=== PATIENT | female | born 1985 | race African-American/Black ===

== ENCOUNTER 2020-06-08 09:40 | Emergency (ER) | payer OTHER ==
[~2020-06-08] VITALS: Ht 162.6 cm; Wt 72.7 kg
[2020-06-08] MEDS ORDERED: FISH1000 PO (10:08)
[2020-06-08] MEDS ORDERED: PREN29TA4 PO (10:08)
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
[2020-06-08 12:35] VITALS: BP 135/75
== END 2020-06-08 12:27 | disposition home or self-care (01) ==
LOC: M ED 09:40 → EDBD 09:40 → M ED 12:27
DX: S16.1XXA Strain of muscle, fascia and tendon at neck level, initial encounter (principal); S39.012A Strain of muscle, fascia and tendon of lower back, initial encounter; V43.52XA Car driver injured in collision with other type car in traffic accident, initial encounter; Y92.9 Unspecified place or not applicable; Y93.9 Activity, unspecified; Y99.9 Unspecified external cause status; Z79.899 Other long term (current) drug therapy

== ENCOUNTER 2020-09-20 11:51 | Emergency (ER) | payer OTHER ==
[~2020-09-20] VITALS: Ht 162.6 cm; Wt 88.1 kg
[~2020-09-20 11:51] MED LIST: FISH1000 PO; PREN29TA4 PO
[2020-09-20] MEDS ORDERED: NS 1,000 ML IV ONE (12:30)
[2020-09-20 13:03] LABS: BASO # 0.1 10^3/uL (0.0-0.2); BASO % 1.2 % (0.0-1.0); EOS # 0.1 10^3/uL (0.0-0.5); EOS % 1.2 % (0.0-3.0); HEMATOCRIT 38.5 % (36.0-47.0); HEMOGLOBIN 12.3 g/dl (12.0-15.5); LYMPH # 2.2 10^3/uL (1.5-5.0); LYMPH % 41.8 % (24.0-44.0); MEAN CORPUSCULAR HEMOGLOBIN 28.9 pg (27.0-33.0); MEAN CORPUSCULAR HGB CONC 31.9 g/dl (32.0-36.5); MEAN CORPUSCULAR VOLUME 90.6 fl (80.0-96.0); MONO # 0.5 10^3/uL (0.0-0.8); MONO % 9.3 % (0.0-5.0); NEUTROPHILS # 2.4 10^3/uL (1.5-8.5); NEUTROPHILS % 46.3 % (36.0-66.0); PLATELET COUNT, AUTOMATED 176 10^3/uL (150-450); RED BLOOD COUNT 4.25 10^6/uL (4.00-5.40); WHITE BLOOD COUNT 5.2 10^3/uL (4.0-10.0)
[2020-09-20] MEDS ORDERED: KETOROLAC 30 MG/ML 1ML VIAL IV ONE (13:45)
[2020-09-20 13:46] LABS: ALBUMIN 3.7 GM/DL (3.2-5.2); ALT/SGPT 21 U/L (12-78); BILIRUBIN,DIRECT < 0.1 MG/DL (0.0-0.2); BILIRUBIN,TOTAL 0.2 MG/DL (0.2-1.0); TOTAL PROTEIN 7.5 GM/DL (6.4-8.2)
--- NOTE | 2020-09-20 14:33 | REP ---
INDICATION: pelvic/adenexal pain. COMPARISON: None. TECHNIQUE: Transabdominal scanning is performed. FINDINGS: Uterine dimensions are normal at 6.9 x 3.3 x 5.0 cm. Endometrial echo is 0.6 cm thick and centrally placed. No free fluid is seen in the cul-de-sac. Visualized bladder tavera are smooth. The right ovary has dimensions of 5.1 x 2.9 x 2.2 cm. It's Doppler flow is normal with a resistive index of 0.69. There is a involuting cyst in the right ovary measuring 2.6 x 2.0 x 1.9 cm. The left ovary dimensions are normal as well at 4.2 x 1.9 x 2.6 cm. It's Doppler flow was normal with resistive index of 0.67. No ovarian abnormality is noted on the left. No free fluid is seen. IMPRESSION: Involuting cyst right ovary. No significant abnormality.. <Electronically signed by Jose Raul Rubio > 09/20/20 [id number]
[2020-09-20 15:04] VITALS: BP 147/81
== END 2020-09-20 15:06 | disposition home or self-care (01) ==
LOC: M ED 11:51
DX: N83.201 Unspecified ovarian cyst, right side (principal); Z79.899 Other long term (current) drug therapy
CPT/HCPCS: 76856; 80047; 80076; 81001; 84702; 85025; 96361; 96374; 99284; J1885

== ENCOUNTER 2020-10-21 10:39 | Emergency (ER) | payer OTHER ==
[~2020-10-21] VITALS: Ht 162.6 cm; Wt 86.7 kg
[2020-10-21] MEDS ORDERED: muscle relaxer (10:59)
[2020-10-21 11:35] LABS: BASO # 0.1 10^3/uL (0.0-0.2); BASO % 0.8 % (0.0-1.0); EOS % 0.5 % (0.0-3.0); HEMATOCRIT 38.1 % (36.0-47.0); HEMOGLOBIN 12.3 g/dl (12.0-15.5); LYMPH # 2.1 10^3/uL (1.5-5.0); LYMPH % 27.1 % (24.0-44.0); MEAN CORPUSCULAR HEMOGLOBIN 28.4 pg (27.0-33.0); MEAN CORPUSCULAR HGB CONC 32.3 g/dl (32.0-36.5); MONO # 0.6 10^3/uL (0.0-0.8); MONO % 7.6 % (0.0-5.0); NEUTROPHILS # 4.9 10^3/uL (1.5-8.5); NEUTROPHILS % 63.7 % (36.0-66.0); PLATELET COUNT, AUTOMATED 196 10^3/uL (150-450); RED BLOOD COUNT 4.33 10^6/uL (4.00-5.40); WHITE BLOOD COUNT 7.7 10^3/uL (4.0-10.0)
[2020-10-21] MEDS ORDERED: NS 1,000 ML IV ONE (12:00)
[2020-10-21] MEDS ORDERED: ACETAMINOPHEN 500 MG TAB PO ONE (12:00)
[2020-10-21 12:28] LABS: ALBUMIN 3.8 GM/DL (3.2-5.2); ALT/SGPT 21 U/L (12-78); BILIRUBIN,DIRECT 0.1 MG/DL (0.0-0.2); BILIRUBIN,TOTAL 0.3 MG/DL (0.2-1.0); BLOOD UREA NITROGEN 10 MG/DL (7-18); CALCIUM LEVEL 9.6 MG/DL (8.5-10.1); CARBON DIOXIDE LEVEL 28 MEQ/L (21-32); CHLORIDE LEVEL 105 MEQ/L (98-107); CREATININE FOR GFR 0.99 MG/DL (0.55-1.30); GLOMERULAR FILTRATION RATE > 60.0 (>60); GLUCOSE, FASTING 111 MG/DL (70-100); HCG, SERUM QUANTITATIVE 681 MIU/ML; LIPASE 353 U/L (73-393); POTASSIUM SERUM 3.7 MEQ/L (3.5-5.1); SODIUM LEVEL 138 MEQ/L (136-145); TOTAL PROTEIN 7.7 GM/DL (6.4-8.2)
--- NOTE | 2020-10-21 13:44 | REP ---
INDICATION: pelvic pain, positive HCG. COMPARISON: None. TECHNIQUE: Real-time sonographic evaluation of pelvis performed utilizing transabdominal and endovaginal technique. FINDINGS: Uterus measures 8.2 x 4.0 x 4.6 cm. Endometrial thickness is 17 mm. Small sac-like structure in the endometrial canal may represent an early intrauterine gestation. The mean sac diameter is 2 mm which would correspond to an estimated gestational age of 4 weeks 5 days. No internal yolk sac or pole is visualized. Right ovary measures 5.1 x 1.7 x 3.4 cm and left ovary measures 5.0 x 2.2 x 3.3 cm. There is no evidence of ovarian torsion bilaterally with duplex Doppler evaluation. Complex hyperechoic structure in the left ovary probably represents a complex corpus luteum 2.4 x 1.8 x 2.1 cm. There is trace free fluid in the cul-de-sac. IMPRESSION: Small sac-like structure in the endometrial canal 2 mm in diameter, which would correspond to an estimated gestational age of 4 weeks 5 days. No internal yolk sac or pole seen. No adnexal mass. Trace free fluid. The findings may represent very early intrauterine gestation. Ectopic cannot totally be excluded. Recommend correlation with serial quantitative beta HCG values and follow-up ultrasound may be obtained in about 2 weeks to document viability. <Electronically signed by Jay Watkins > 10/21/20 [id number]
[2020-10-21 14:23] VITALS: BP 109/56
[2020-10-22] MEDS ORDERED: HYDR-3713 PO ×2 (15:29→15:35)
== END 2020-10-21 14:30 | disposition home or self-care (01) ==
LOC: M ED 10:39
DX: O20.0 Threatened abortion (principal); O26.899 Other specified pregnancy related conditions, unspecified trimester; Z32.01 Encounter for pregnancy test, result positive; Z3A.01 Less than 8 weeks gestation of pregnancy; Z79.899 Other long term (current) drug therapy

== ENCOUNTER 2020-10-22 11:59 | Emergency (ER) | payer OTHER ==
[~2020-10-22] VITALS: Ht 162.6 cm; Wt 89.0 kg
[~2020-10-22 11:59] MED LIST changes: +muscle relaxer
--- OUTSIDE RECORDS SUMMARY | 2020-10-22 12:07 | CCD ---
Author Author [facility] Organization [facility] Address Unknown Phone Unavailable Care Team Providers Care Senior Java [email or web address] Developer Name Role Phone MCELHERAN, LINSEY PA Unavailable Unavailable MCELHERAN, LINSEY PA Unavailable Unavailable MCELHERAN, LINSEY PA Unavailable Unavailable MCELHERAN, LINSEY PA Unavailable Unavailable MCELHERAN, LINSEY PA Unavailable Unavailable MCELHERAN, LINSEY PA Unavailable Unavailable MCELHERAN, LINSEY PA Unavailable Unavailable MCELHERAN, LINSEY PA Unavailable Unavailable MCELHERAN, LINSEY PA Unavailable Unavailable MCELHERAN, LINSEY PA Unavailable Unavailable MCELHERAN, LINSEY PA Unavailable Unavailable MCELHERAN, LINSEY PA Unavailable Unavailable MCELHERAN, LINSEY PA Unavailable Unavailable MCELHERAN, LINSEY PA Unavailable Unavailable MCELHERAN, LINSEY PA Unavailable Unavailable MCELHERAN, LINSEY PA Unavailable Unavailable MCELHERAN, LINSEY PA Unavailable Unavailable MCELHERAN, LINSEY PA Unavailable Unavailable MCELHERAN, LINSEY PA Unavailable Unavailable MCELHERAN, LINSEY PA Unavailable Unavailable MCELHERAN, LINSEY PA Unavailable Unavailable MCELHERAN, LINSEY PA Unavailable Unavailable MCELHERAN, LINSEY PA Unavailable Unavailable MCELHERAN, LINSEY PA Unavailable Unavailable MCELHERAN, LINSEY PA Unavailable Unavailable MCELHERAN, LINSEY PA Unavailable Unavailable MCELHERAN, LINSEY PA Unavailable Unavailable MCELHERAN, LINSEY PA Unavailable Unavailable Re-disclosure Warning The records that you are about to access may contain information from federally-assisted alcohol or drug abuse programs. If such information is present, then the following federally mandated warning applies: This information has been disclosed to you from records protected by federal confidentiality rules (42 CFR part 2). The federal rules prohibit you from making any further disclosure of this information unless further disclosure is expressly permitted by the written consent of the person to whom it pertains or as otherwise permitted by 42 CFR part 2. A general authorization for the release of medical or other information is NOT sufficient for this purpose. The Federal rules restrict any use of the information to criminally investigate or prosecute any alcohol or drug abuse patient.The records that you are about to access may contain highly sensitive health information, the redisclosure of which is protected by Article 27-F of the [facility] Public Health law. If you continue you may have access to information: Regarding HIV / AIDS; Provided by facilities licensed or operated by the [facility] Office of Mental Health; or Provided by the [facility] Office for People With Developmental Disabilities. If such information is present, then the following [facility] mandated warning applies: This information has been disclosed to you from confidential records which are protected by state law. State law prohibits you from making any further disclosure of this information without the specific written consent of the person to whom it pertains, or as otherwise permitted by law. Any unauthorized further disclosure in violation of state law may result in a fine or detention sentence or both. A general authorization for the release of medical or other information is NOT sufficient authorization for further disc losure. Encounters Encounter Providers Location Date Indications Data Source(s ) Office Visit Attender: LINSEY DELGADO Physical Therapy 10/20/2020 01:30:00 PM EST [facility] ([facility]) Insurance Providers Payer name Policy type / Coverage type Policy ID Covered libertarian ID Covered libertarian's relationship to oseguera Policy Oseguera Plan Information EAST ACTIVE DUTY [id number] SP [id number] UYEN INSURANCE O [id number] S A0 [id number] HUMANA EAST REG O [id number] S [id number] O UNAVAILABLE UNAVAILA BLE [facility] ACTIVE DUTY [id number] SP [id number] Vital Signs ID Date Data Source UNK Name Value Range Interpretation Code Description Data Source(s) Body mass index (BMI) [Ratio] 31.3 kg/m2 31.3 k g/m2 [facility] ([facility]) Body weight 191.00 [lb_av] 191.00 [lb_av] MEDEN T ([facility] ) Body height 65.5 [in_i] 65.5 [in_i] [facility] ([facility] ) 5'5.50" Body temperature 97.1 [degF] 97.1 [degF] [facility] ([facility] )
--- OUTSIDE RECORDS SUMMARY | 2020-10-22 12:07 | CCD | Continuity of Care Document ---
Author Author Petty VEGA Organization Unknown Address [address] [place] [address], [facility] [address] [place] [address] Phone [phone] Care Team Providers Care Hr Advisor Name Role Phone Ricki Lopes Unavailable Problems Description No Information Available Social History Type Date Description Comments Sex Unknown ETOH Use Denies alcohol use Tobacco Use Start: Unknown Denies Smoking Allergies, Adverse Reactions, Alerts Description No Information Available Medications Active Medications SIG Qnty Indications Ordering Provide r Date Ibuprofen 200mg Capsules 1x p d Unknown Immunizations Description No Information Available Vital Signs Date Vital Result Comment 10/20/2020 3:14pm Body Temperature 97.1 F Height 65.5 inches 5'5.50" Weight 191.00 lb BMI (Body Mass Index) 31.3 kg/m2 Results Description No Information Available Procedures Description No Information Available Medical Devices Description No Information Available Encounters Type Date Location Provider Dx Diagnosis Office Visit 10/20/2020 2:30p Ald[place] Mookie Moffett M51.36 Other intervertebral disc degeneration, lumbar region Assessments Date Code Description Provider 10/20/2020 M51.36 Other intervertebral disc degene ration, lumbar region Mookie Moffett Plan of Treatment 10/20/2020 - Mookie Moffett* M51.36 Other intervertebral disc degeneration, lumbar region* Follow up:* prn Functional Status Description No Information Available Mental Status Description No Information Available Referrals Refer to Reason for Referral Status Appt Date Telma Arvizu PA-C SCIATICA Created [address] [place] [address] [address] [place] [address] [phone] Nolberto, KAI Conway Created [address] [facility] [address] [place] [address] [phone]
--- OUTSIDE RECORDS SUMMARY | 2020-10-22 12:43 | CCD ---
Author Author [facility] Organization [facility] Address Unknown Phone Unavailable Care Team Providers Care Bag Bundler Name Role Phone MCELHERAN, LINSEY PA Unavailable [...] is protected by Article 27-F of the [place] Public Health law. If you continue you may have access to information: Regarding HIV / AIDS; Provided by facilities licensed or operated by the [place] Office of Mental Health; or Provided by the [place] Office for People With Developmental Disabilities. If such information is present, then the following [place] mandated warning applies: This information has been [...] law may result in a fine or residential sentence or both. A general authorization for the release of medical or other information is NOT sufficient authorization for further disc losure. Encounters Encounter Providers Location Date Indications Data Source(s ) Office Visit Attender: LINSEY DELGADO Physical Therapy 10/20/2020 01:30:00 PM EST [facility] ([facility]) Insurance Providers Payer name Policy type / Coverage type Policy ID Covered republican ID Covered republican's relationship to oseguera Policy Oseguera Plan Information EAST ACTIVE DUTY [id number] SP [id number] UYEN INSURANCE O [id number] S A0 [id number] HUMANA EAST REG O [id number] S [id number] O UNAVAILABLE UNAVAILA BLE [facility] ACTIVE DUTY [id number] SP [id number] Vital Signs ID Date Data Source UNK Name Value Range Interpretation Code Description Data Source(s) Body mass index (BMI) [Ratio] 31.3 kg/m2 31.3 k g/m2 [facility] ([facility]) Body weight 191.00 [lb_av] 191.00 [lb_av] [facility] T ([facility] ) Body height 65.5 [in_i] 65.5 [in_i] [facility] ([facility] ) 5'5.50" Body temperature 97.1 [degF] 97.1 [degF] [facility] ([facility] )
--- NOTE | 2020-10-22 14:46 | REP ---
INDICATION: prob l cyst yest severe increase pain ?rupture ?torsion? ect. COMPARISON: 10/21/2020. TECHNIQUE: Real-time sonographic evaluation of pelvis performed utilizing transabdominal and endovaginal technique. FINDINGS: Uterus measures 9.0 x 4.2 x 5.0 cm. Once again in the endometrial canal a sac-like structure is seen. The mean sac diameter today is 4 mm corresponding to an estimated gestational age of 5 weeks 1 day. There is no pole or yolk sac identified within. Right ovary measures 3.2 x 2.0 x 4.0 cm with resistive index 0.66 with duplex Doppler evaluation and no torsion. Left ovary measures 4.4 x 2.4 x 4.2 cm with resistive index 0.46 and no evidence of torsion. Hypoechoic structure in the left ovary 2.3 cm maximally probably represents a complex corpus luteum. IMPRESSION: No change since prior exam 10/21/2020. Sac-like structure in the endometrial canal may represent an early intrauterine gestation, but again ectopic cannot be excluded. Recommend correlation with serial quantitative beta HCG values and follow-up ultrasound. Once again in the left ovary a hypoechoic structure 2.3 cm in diameter may represent a complex corpus luteum. There is no evidence of ovarian torsion bilaterally. <Electronically signed by Jay Watkins > 10/22/20 [id number]
[2020-10-22 15:27] LABS: CHLAMYDIA DNA AMPLIFICATION NEGATIVE (NEGATIVE); GC DNA AMPLIFICATION NEGATIVE (NEGATIVE)
[2020-10-22] MEDS ORDERED: HYDR-3713 PO ×2 (15:29→15:35)
[2020-10-22 15:56] VITALS: BP 114/61
== END 2020-10-22 16:18 | disposition home or self-care (01) ==
LOC: M ED 11:59
DX: O34.81 Maternal care for other abnormalities of pelvic organs, first trimester (principal)

== ENCOUNTER → 2020-10-23 | Outpatient (CLI) | payer OTHER ==
[~2020-10-23] MED LIST changes: +HYDR-3713 PO
== END ==
LOC: M LAB 12:08
PROVIDERS: ATTEND Physician Assistant
DX: R10.9 Unspecified abdominal pain (principal)

== ENCOUNTER → 2020-10-29 | Outpatient (CLI) | payer OTHER ==
--- NOTE | 2020-10-29 17:28 | REP ---
INDICATION: VIABILITY AND DATING PT HAS LABS FIRST. COMPARISON: None. TECHNIQUE: Transabdominal and transvaginal scanning is performed. FINDINGS: There is a intra uterine gestational sac containing a yolk sac and embryonic pole. The embryonic pole is 3.3 mm which would correspond with a gestational age estimate is 6 weeks 0 days. There is a small yolk sac. There is no cardiac activity on transvaginal imaging raising suspicion of intrauterine demise. Normal right ovary is seen measuring 3.5 x 1.8 x 2.5 cm. No free fluid is seen. The left ovary measures 4.2 x 2.0 x 3.7 cm. There is a 2.2 cm hypoechoic cysts consistent with corpus luteum in the left ovary.. IMPRESSION: Intrauterine gestational sac contains a yolk sac and embryonic pole. No motion or cardiac motion could be observed on transvaginal imaging. 6 weeks 0 days by crown-rump length. Intrauterine demise versus early IUP. Clinical follow-up is suggested. Consider follow-up sonography. <Electronically signed by Jose Raul Rubio > 10/29/20 [id number]
== END ==
LOC: M RAD 14:44
PROVIDERS: ATTEND Obstetrics & Gynecology
DX: O36.80X0 Pregnancy with inconclusive fetal viability, not applicable or unspecified (principal); Z3A.01 Less than 8 weeks gestation of pregnancy

== ENCOUNTER 2020-11-03 11:36 | Emergency (ER) | payer OTHER ==
[~2020-11-03] VITALS: Ht 162.6 cm; Wt 88.7 kg
[2020-11-03 11:36] VITALS: BP 133/63
--- OUTSIDE RECORDS SUMMARY | 2020-11-03 11:42 | CCD | Continuity of Care Document ---
Author Author Petty VEGA Organization Unknown Address [address] [place] [address], [facility] [[email or web address]] e [address] [place] [address] Phone [phone] Care Team Providers Care Director Of Dietary Name Role Phone Ricki Lopes Unavailable Problems [...] Provider Dx Diagnosis Office Visit 10/20/2020 2:30p [place] Mookie Moffett M51.36 Other intervertebral disc degeneration, [...] Appt Date Telma Arvizu PA-C SCIATICA Created [address] [place] [address] [address] [place] [address] [phone] Nolberto, KAI Conway Created [address] [facility] [address] [place] [address] [phone]
--- OUTSIDE RECORDS SUMMARY | 2020-11-03 11:42 | CCD ---
Author Author [facility] Organization [facility] Address Unknown Phone Unavailable Care Team Providers Care Anthropology Faculty Member Name Role Phone MCELHERAN, LINSEY PA Unavailable [...] Unavailable MCELHERAN, LINSEY PA Unavailable Unavailable MCELHERAN, LINSYE PA Unavailable Unavailable MCELHERAN, LINSEY PA Unavailable [...] is protected by Article 27-F of the [facility] Public Health law. If you continue you may have access to information: Regarding HIV / AIDS; Provided by facilities licensed or operated by the [facility] Office of Mental Health; or Provided by the [facility] Office for People With Developmental Disabilities. If such information is present, then the following [facility] mandated warning applies: This information has [...] law may result in a fine or group home sentence or both. A general authorization for the release of medical or other information is NOT sufficient authorization for further disc losure. Encounters Encounter Providers Location Date Indications Data Source(s ) Office Visit Attender: LINSEY DELGADO Physical Therapy 10/20/2020 01:30:00 PM EST [facility] ([facility]) Insurance Providers Payer name Policy type / Coverage type Policy ID Covered republican ID Covered republican's relationship to oseguera Policy Oseguera Plan Information EAST HUMANA [id number] SP [id number] EAST ACTIVE DUTY [id number] SP [id number] UYEN INSURANCE O [id number] S A0 [id number] HUMANA EAST REG O [id number] S [id number] O UNAVAILABLE UNAVAILA BLE [facility] ACTIVE DUTY [id number] SP [id number] Vital Signs ID Date Data Source UNK Name Value Range Interpretation Code Description Data Source(s) Body mass index (BMI) [Ratio] 31.3 kg/m2 31.3 k g/m2 [facility] ([facility]) Body weight 191.00 [lb_av] 191.00 [lb_av] TRENTEN T ([facility] ) Body height 65.5 [in_i] 65.5 [in_i] KRIS ([facility] ) 5'5.50" Body temperature 97.1 [degF] 97.1 [degF] KRIS ([facility] )
--- OUTSIDE RECORDS SUMMARY | 2020-11-03 12:25 | CCD ---
Author Author [facility] Organization [facility] Address Unknown Phone Unavailable Care Team Providers Care Wallpaper Hanger Helper Name Role Phone MCELHERAN, LINSEY PA Unavailable [...] is protected by Article 27-F of the [facility] Public Health law. If you continue you may have access to information: Regarding HIV / AIDS; Provided by facilities licensed or operated by the [facility] Office of Mental Health; or Provided by the [facility] Office for People With Developmental Disabilities. If such information is present, then the following [facility] mandated warning applies: This information has [...] law may result in a fine or fci sentence or both. A general authorization for the release of medical or other information is NOT sufficient authorization for further disc losure. Encounters Encounter Providers Location Date Indications Data Source(s ) Office Visit Attender: LINSEY DELGADO Physical Therapy 10/20/2020 01:30:00 PM EST [facility] ([facility]) Insurance Providers Payer name Policy type / Coverage type Policy ID Covered democrat ID Covered democrat's relationship to oseguera Policy Oseguera Plan Information EAST ACTIVE DUTY [id number] SP [id number] EAST HUMANA [id number] SP [id number] UYEN INSURANCE O [id number] S A0 [id number] HUMANA EAST REG O [id number] S [id number] O UNAVAILABLE UNAVAILA BLE [facility] ACTIVE DUTY [id number] SP [id number] Vital Signs ID Date Data Source UNK Name Value Range Interpretation Code Description Data Source(s) Body mass index (BMI) [Ratio] 31.3 kg/m2 31.3 k g/m2 [facility] ([facility]) Body weight 191.00 [lb_av] 191.00 [lb_av] TRENTEN T ([facility] ) Body height 65.5 [in_i] 65.5 [in_i] KRIS ([facility] ) 5'5.50" Body temperature 97.1 [degF] 97.1 [degF] KRIS ([facility] )
== END 2020-11-03 12:32 | disposition home or self-care (01) ==
LOC: M ED 11:36
DX: M54.42 Lumbago with sciatica, left side (principal)

== ENCOUNTER 2020-12-11 03:40 | Emergency (ER) | payer OTHER ==
[~2020-12-11] VITALS: Ht 162.6 cm; Wt 86.3 kg
[2020-12-11] MEDS ORDERED: CYCLOBENZAPRINE 5MG TABLET PO ONE (04:00)
[2020-12-11] MEDS ORDERED: PERCOCET 5MG/325MG TAB PO ONE (04:00)
[2020-12-11] MEDS ORDERED: CYCL5TAB PO (05:36)
[2020-12-11] MEDS ORDERED: PERC5TAB12 PO (05:36)
[2020-12-11 05:57] VITALS: BP 115/52
== END 2020-12-11 05:50 | disposition home or self-care (01) ==
LOC: M ED 03:40
DX: M51.16 Intervertebral disc disorders with radiculopathy, lumbar region (principal)

== ENCOUNTER → 2020-12-14 | Outpatient (CLI) | payer OTHER ==
[~2020-12-14] MED LIST changes: +CYCL5TAB PO; +PERC5TAB12 PO
--- NOTE | 2020-12-16 00:28 | ECWPNPC ---
PATIENT NAME: DONATO BURDEN : 1985 GENDER: FEMALE VISIT DATE: 12/14/2020 DISCHARGE DATE: 12/14/20 1605 VISIT LOCKED DATE TIME: PHYSICIAN: ROSALIA LEPE MD RESOURCE: ROSALIA LEPE MD REASON FOR APPOINTMENT 1. LUMBAR PAIN HISTORY OF PRESENT ILLNESS DEPRESSION SCREENING: PHQ-9 LITTLE INTEREST OR PLEASURE IN DOING THINGSNEARLY EVERY DAY FEELING DOWN, DEPRESSED, OR HOPELESSSEVERAL DAYS TROUBLE FALLING OR STAYING ASLEEP, OR SLEEPING TOO MUCHNEARLY EVERY DAY FEELING TIRED OR HAVING LITTLE ENERGYMORE THAN HALF THE DAYS POOR APPETITE OR OVEREATING NEARLY EVERY DAY FEELING BAD ABOUT YOURSELF-OR THAT YOU ARE A FAILURE OR HAVE LET YOURSELF OR YOUR FAMILY DOWN SEVERAL DAYS TROUBLE CONCENTRATING ON THINGS, SUCH READING THE NEWSPAPER OR WATCHING TELEVISION SEVERAL DAYS MOVING OR SPEAKING SO SLOWLY THAT OTHER PEOPLE COULD HAVE NOTICED. OR THE OPPOSITE- BEING SO FIDGETY OR RESTLESS THAT YOU HAVE BEEN MOVING AROUND A LOT MORE THAN USUALNOT AT ALL THOUGHTS THAT YOU WOULD BE BETTER OFF , OR OF HURTING YOURSELF IN SOME WAY?NOT AT ALL TOTAL SCORE:14 INTERPRETATIONMODERATE DEPRESSION PHQ-2 (2015 EDITION) LITTLE INTEREST OR PLEASURE IN DOING THINGS?NEARLY EVERY DAY FEELING DOWN, DEPRESSED, OR HOPELESS?SEVERAL DAYS TOTAL SCORE4 GENERAL: 35-YEAR-OLD FEMALE PATIENT WITH A HISTORY OF CHRONIC LOW BACK AND LEG PAIN. 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 THE PATIENT DESCRIBES THE PAIN BURNING, SHOOTING AND SEVERE WITH A PAIN SCORE RANGING FROM 7-9/10 IN THE BACK WITH RADIATION TO MAINLY THE LEFT LEG CAUSING NUMBNESS IN THE LEG. SHE CANNOT SLEEP. SHE CANNOT FIND A COMFORTABLE POSITION. THE PATIENT WAS REFERRED BY HER PRODUCT DEVELOPMENT WORKER, DR. MALDONADO. THE PATIENT REPORTS NUMBNESS OVER THE LEFT LEG AND LEFT FOOT BUT ALSO REPORTS NUMBNESS AND TINGLING ON OCCASIONS OVER THE LEFT ARM. ALSO, IN THE PAST, SHE HAS SOME NUMBNESS AND PAIN IN HER RIGHT LEG. SHE STATES THAT ALL HER TOES ON THE LEFT ARE NUMB. THE PATIENT IS 12 WEEKS . FALL RISK SCREENING: SCREENING : ONE OR MORE FALLS IN THE PAST YEAR, DENIES NEEDING MEDICAL ATTENTION.. PAIN SCREENING: PATIENT HAS A COMPLAINT OF ACUTE OR CHRONIC PAIN :YES LOCATION OF PAIN: LOW BACK INTENSITY OF PAIN (SCALE OF 1 TO 10): 9/10 WHAT DOES YOUR PAIN FEEL LIKE:BURNING, OTHER SHOOTING PAIN RADIATING INTO LEGS CAUSING NUMBNESS. DURATION:STEADY, AWAKENS FROM SLEEP PAIN IS INCREASED BY:ACTIVITIES, PROLONGED STANDING PAIN IS DECREASED BY:USE OF PAIN MEDICATIONS TREATMENT/MEDICATIONS USED TO MANAGE PAIN:PHYSICAL THERAPY, OTC PAIN RELIEVERS PLAN/GOALS/TREATMENT/INTERVENTION/FOLLOW UP:SEE PLAN NURSING NOTE: TRIGGER POINT INJECTION PRINTED EDUCATION GIVEN TO THE PATIENT AND ALSO WENT OVER PREPROCEDURE EDUCATION AND PRINTED AND GAVE TO THE PATIENT. PATIENT ASKED QUESTIONS AND VERBALIZES UNDERSTANDING WHEN EXPLANATIONS GIVEN- DINESH VAZQUEZ. PAIN CENTER INTAKE QUESTIONS: DO YOU HAVE A HISTORY OF MRSA? :NO DO YOU TAKE A BLOOD THINNERS? :NO DO YOU HAVE ANY BLEEDING DISORDERS? :NO ANY NEW NUMBNESS OR WEAKNESS IN YOUR LEGS OR ARMS? :NO ANY PACEMAKER,DEFIBRILLATOR, OR DORSAL COLUMN STIMULATOR? :NO DO YOU HAVE ANY RASHES OR OPEN SORES? :NO ARE YOU ALLERGIC TO IV DYE? :NO ARE YOU DIABETIC? :NO ANY NEW PROBLEMS WITH YOUR MEDICATIONS? :NO HAVE YOU RECEIVED A VACCINE IN THE PAST 30 DAYS? :NO DO YOU PLAN TO RECEIVE A VACCINE IN THE NEXT 21 DAYS? :NO DO YOU NEED ANY PRESCRIPTION? :NO DO YOU TAKE ANY IMMUNOSUPPRESSIVE MEDICATIONS? :NO DO YOU HAVE ANY KIDNEY OR LIVER DISEASE? :NO IS THERE A CHANCE YOU COULD BE ? :YES 2ND TRIMESTER LMP/US: 12WEEKS ARE YOU BREAST FEEDING? :NO CURRENT MEDICATIONS TAKING FLEXERIL 5MG ORAL NEEDED TAKING VITAMIN D (ERGOCALCIFEROL) 50 MCG (2000 UT) CAPSULE 1 CAPSULE ORALLY ONCE A DAY TAKING 1 MEDICATION LIST REVIEWED AND RECONCILED WITH THE PATIENT PAST MEDICAL HISTORY BACK INJURY INTRACTABLE PAIN HISTORY OF LATENT TUBERCULOSIS AMA : YES ALLERGIES N.K.D.A. SURGICAL HISTORY DENIES PAST SURGICAL HISTORY FAMILY HISTORY FATHER: ALIVE MOTHER: ALIVE EXPECTING JUNE 26, 2021 DUE DATE. SOCIAL HISTORY GENERAL: TOBACCO USE ARE YOU A:NONSMOKER LATEX QUESTIONNAIRE LATEX ALLERGY : HAVE YOU EVER DEVELOPED ANY TYPE OF REACTION AFTER HANDLING LATEX PRODUCTS SUCH RUBBER GLOVES, CONDOMS, DIAPHRAGMS, BALLOONS, SOCKS, OR UNDERWEAR?NO LATEX ALLERGY : HAVE YOU EVER DEVELOPED ANY TYPE OF REACTION DURING OR AFTER DENTAL APPOINTMENT, VAGINAL/RECTAL EXAMINATION, SURGICAL PROCEDURE, OR ANY OTHER EXPOSURE?NO LATEX RISK : HAVE YOU EVER HAD ANY DIFFICULTY BREATHING OR HIVES AFTER EATING OR HANDLING ANY FRUITS, OR VEGETABLES; SUCH KIWI, BANANAS, STONE FRUITS, OR CHESTNUTSNO LATEX RISK : DO YOU HAVE A PREVIOUS PERSONAL HISTORY OF MORE THAN NINE SURGERIES, SPINA BIFIDA, OR REPEATED CATHERIZATIONS? NO LATEX RISK : ARE YOU FREQUENTLY EXPOSED TO LATEX PRODUCTS IN YOUR OCCUPATION?NO DATE ASKED : 12/13/2020 ALCOHOL USE: SUJATA OLIVAREZ 12/13/2020 5:32:25 PM > , NO. RECREATIONAL DRUG USE DRUG USE?NO LEARNING BARRIERS / SPECIAL NEEDS BARRIERS TO LEARNING?NO HEARING IMPAIRED?NO VISION IMPAIRED?NO COGNITIVELY IMPAIRED?NO READINESS TO LEARN?YES LEARNING PREFERENCES?NO LEARNING CAPABILITIES PRESENT?YES EMOTIONAL BARRIERS?NO SPECIAL DEVICES?NO DIRECTOR OF RELIGIOUS LIFE NEEDED?NO PRIMARY LANGUAGE IS NOT TANZANIAN, BUT PATIENT IS FLUENT IN TANZANIAN BOTH WRITTEN AND SPOKEN. 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 EXERCISE: RUNNING, WALKS, DAILY. HOSPITALIZATION/MAJOR DIAGNOSTIC PROCEDURE DENIES PAST HOSPITALIZATION REVIEW OF SYSTEMS CONSTITUTIONAL: ANY RECENT FEVER PATIENT REPORTS SOME OCCASION FEVER AND CHILLS THAT SHE FEELS IS ASSOCIATED WITH THE PAIN. . CHILLS PATIENT REPORTS SOME OCCASION FEVER AND CHILLS THAT SHE FEELS IS ASSOCIATED WITH THE PAIN. . WEIGHT CHANGE OF UNKNOWN REASONS NO . GASTROENTEROLOGY: NEW UNEXPLAINABLE CHANGES IN BOWEL CONTROL NO . CONSTIPATION OCCASIONAL . GENITOURINARY: ANY NEW CHANGE IN BLADDER CONTROL? NO . NEUROLOGY: HAVE YOU FALLEN IN THE PAST 12 MONTHS? NO . OTHER NEW NUMBNESS OR PAIN PATTERNS NOT MENTIONED NO . HEAD INJURY NO . DEMENTIA NO . CEREBRAL PALSY NO . MULTIPLE SCLEROSIS NO . MYAASTHENIA GRAVIS NO . NEW ONSET DIZZINESS OR NEUROLOGICAL CHANGES NOT MENTIONED HISTORY OF MIGRAINES . NEW NUMBNESS OR PAIN PATTERNS NOT MENTIONED AND PERTINENT TO TODAY'S VISIT NUMBNESS OVER THE LEFT LEG AND ARM . DIZZINESS NO . HISTORY OF SEVERE HEADACHES NOT MENTIONED NO . HISTORY OF STROKE OR NEUROLOGICAL DISORDER NOT MENTIONED NO . VERTIGO NO . CARDIOLOGY: NEW CHEST PRESSURE NO . PATIENT DENIES NO . RESPIRATORY: UNEXPLAINABLE COUGH NO . NEW SHORTNESS OF BREATH NO . VITAL SIGNS WT 189.2 LBS, HT 64 IN, BMI 32.47 INDEX, BP 127/59 MM HG, HR 90 /MIN, RR 18 /MIN, TEMP 98.1 F, OXYGEN SAT % 99%, NA INITIALS SC 13:23. EXAMINATION GENERAL EXAMINATION: THE PATIENT IS ALERT, ORIENTED TIMES THREE AND COOPERATIVE. WHEN SHE TRIED TO STAND, SHE HAD TO SIT DUE TO THE DISCOMFORT IN HER BACK AND THE NUMBNESS DOWN HER LEGS. LUNGS ARE CLEAR TO AUSCULTATION. HEART SHOWS REGULAR RHYTHM, NO MURMURS AND NO GALLOPS. IN THE UPPER EXTREMITIES, TACTILE SENSATION IS THE SAME IN BOTH SIDES. THE PATIENT REPORTS SOME NUMBNESS OVER THE LEFT LATERAL THIGH AREA. THE RIGHT AND LEFT BUTTOCK ARE WITH EQUAL SENSATION WITHOUT NUMBNESS. BELOW THE KNEE, OVER THE LATERAL AND MEDIAL ASPECT, SENSATIONS ON THE LEFT SIDE, EVERYTHING APPEARS TO BE NUMB COMPARED TO THE RIGHT SIDE. THERE IS WEAKNESS OVER THE LEFT LEG COMPARED TO THE RIGHT SIDE AT FLEXION AND EXTENSION OF THE KNEES. THERE IS WEAKNESS WITH DORSIFLEXION OF THE ANKLE ON THE LEFT COMPARED TO THE RIGHT. WHEN I ASKED THE PATIENT TO GO ONTO HER TOES, THE PATIENT COULD DO THE RIGHT SIDE BUT WAS UNSURE IF SHE COULD DO THE LEFT SO WE DECIDED NOT TO PERFORM THE MANEUVER. REFLEXES 2/4 OVER THE RIGHT KNEE, 0-1 OVER THE LEFT KNEE. THERE IS TENDERNESS IN THE LOWER BACK WITH PRESENCE OF TRIGGER POINTS WITH RESTRICTION OF MOVEMENT WITH BANDS OF TISSUE IN THE LOWER BACK. MRI OF THE LUMBOSACRAL SPINE DATED 10/11/2020 SHOWS BULGING DISC AT MULTIPLE LEVELS WITH FACET ARTHROPATHY CHANGES, HYPERTROPHY OF THE LIGAMENTUM FLAVUM. ASSESSMENTS INTERVERTEBRAL DISC DISORDERS WITH RADICULOPATHY, LUMBAR REGION - M51.16 (PRIMARY) MYALGIA - M79.10 12 WEEKS GESTATION OF - Z3A.12 TREATMENT INTERVERTEBRAL DISC DISORDERS WITH RADICULOPATHY, LUMBAR REGION CLINICAL NOTES: I DISCUSSED ALTERNATIVES WITH MS. ALEXIS CARDOSO. I DISCUSSED HER LUMBAR MRI WITH DR. BERGER, RADIOLOGIST. I ALSO DISCUSSED THE CASE WITH DR. MALDONADO, REFERRING PHYSICIAN. THE PATIENT HAS CLINICAL EVIDENCE OF RADICULOPATHY, MAINLY FOLLOWING THE DISTRIBUTION OF THE LEFT L4 NERVE. THE MRI OF THE LUMBOSACRAL SPINE DONE IN SEPTEMBER IS NOT THAT IMPRESSIVE, SO I MAY CONSIDER ORDERING A NEW LUMBAR MRI. THE PATIENT EXPRESSED THAT SHE HAS ALSO SOME NUMBNESS ON OCCASIONS OVER THE LEFT ARM AND A PAST HISTORY OF PAIN AND NUMBNESS OVER THE LEFT LEG WORSENING OVER THE LAST FEW MONTHS. SO I HAVE SOME CONCERNS OF SOME POTENTIAL FINDINGS HIGHER IN THE NERVOUS SYSTEM INCLUDING THE BRAIN. I WOULD LIKE TO HAVE THE OPINION OF THE NEUROLOGICAL SERVICE. I WILL CALL THE NEUROLOGICAL OFFICE TO SEE IF THEY CAN EVALUATE THE PATIENT SOON. I DISCUSSED WITH THE PATIENT AND DR. MALDONADO THAT IN MY SCOPE OF PRACTICE, I USUALLY DON'T SEE PATIENTS. THE MAIN CONCERN IS HER BABY AND THE . THE PATIENT REPORTS UNDERSTANDING OF THIS ISSUE BUT REPORTS BEING DESPERATE AND NEEDING HELP. SHE FEELS DEPRESSED, SHE FEELS NO ONE IS HELPING EXCEPT DR. MALDONADO. DR. MALDONADO EXPLAINED THAT IN HIS OBSTETRIC PATIENT'S, HE USE STEROIDS AND AT THAT AT THIS STAGE, IT IS NOT A CONCERN IN REGARDS OF THE PATIENT'S BABY IF WE NEED TO DO AN EPIDURAL STEROID INJECTION. ALSO, HE FEELS THAT USING X-RAYS TO PERFORM ANY EPIDURAL OR TO PERFORM ANY INTERVENTION SHOULD BE SAFE FOR THE PATIENT AND THE BABY. HE EXPLAINED THAT THE PATIENT IS VERY DEPRESSED, NOT MOVING, AND THE BENEFITS OF ANY TYPE OF INTERVENTION WILL OUT WAY ANY POTENTIAL COMPLICATIONS. I DISCUSSED ALL THESE ISSUES WITH THE PATIENT AND THE PATIENT EXPRESSED THAT SHE WOULD LIKE TO PROCEED WITH INTERVENTIONS. THE PATIENT HAS EVIDENCE OF BANDS OF TISSUE AND RESTRICTION OF MOVEMENT AT THE LOWER BACK SO I MAY TRY SOME TRIGGER POINTS FIRST TO HELP HER WITH HER BACK PAIN. FROM THERE, IF SHE NEEDS FURTHER HELP, I MAY CONSIDER SOME EPIDURALS. I EXPLAINED THIS TO THE PATIENT AND ALSO TO DR. MALDONADO. THE PATIENT HAS NOT TRIED PHYSICAL MODALITIES SUCH A TENS UNIT OR A HEATING PAD. DR MALDONADO FEELS THESE MODALITIES ARE SAFE FOR THE PATIENT, SO I WILL ORDER THEM TODAY. I ALSO DISCUSSED THESE WITH THE PATIENT. I WILL REQUEST AUTHORIZATION FOR A TRIGGER POINT INJECTION BILATERAL LOW BACK. I WILL FOLLOW UP WITH THE PATIENT NEXT WEEK. I WILL ORDER AN OFFICIAL READING OF THE MRI DATED 10/11/2020. I DISCUSSED THIS WITH DR. BERGER. THE PATIENT REPORTS UNDERSTANDING AND AGREES WITH THE PLAN. I, ALLISON POLK, DOCUMENTED THE ABOVE INFORMATION ACTING A SCRIBE FOR DR. LEPE. I HAVE REVIEWED THE ABOVE DOCUMENT, WRITTEN BY ALLISON POLK, REGISTERED NURSE AMBULATORY, AND I VERIFY THAT IT IS ACCURATE. . [facility]!!! ATTENTION CORAZON,UPPER AND LOWER EXTREMITY NUMBNESS AND TINGLING MYALGIA [facility]GENT!!! ATTENTION CORAZON,UPPER AND LOWER EXTREMITY NUMBNESS AND TINGLING OTHERS NOTES: 12/13/20 PAT COMPLETED, D/T NPC. Rachael OLIVAREZ SCIENTIFIC DIRECTOR 12/14/20 1330, PATIENT HAD POSITIVE PHQ2, PHQ 9 SCORED A 14 RESPECTIVELY, PATIENT IS ABLE TO CONTRACT FOR SAFETY, PATIENT CURRENTLY ESTABLISHED WITH [facility], PATIENT GIVEN [facility] WALK IN INFORMATION, SPECIFICALLY FOR CRISIS HOTLINE, PATIENT PROVIDED [facility] PHONE NUMBER AND [place] PHONE NUMBER. Rachael OLIVAREZ RN BSN. PROCEDURE CODES FA211 ESTABILISHED PATIENT [facility] CHARGE [id number] OFFICE/OUTPATIENT VISIT EST DISPOSITION & COMMUNICATION FOLLOW UP DR. Marrero NEXT WEEK- FOLLOW UP (REASON: REQUEST AUTH FOR TRIGGER POINT INJECTIONS BILATERAL LOW BACK, DO NOT BOOK, TALK TO ALLISON, PATIENT NEEDS TO SEE NEUROLOGIST FIRST.) ELECTRONICALLY SIGNED BY ROSALIA LEPE MD, ON 12/15/2020 AT 11:30 AM EDT DISCLAIMER : THIS IS A VISIT SUMMARY EXTRACTED FROM THE [employer] CHART. IT IS NOT A COPY OF THE [employer] PROGRESS NOTE. MARIA ALEJANDRA
== END ==
LOC: M PAIN 13:30
PROVIDERS: ATTEND Anesthesiology
DX: M51.16 Intervertebral disc disorders with radiculopathy, lumbar region (principal); M79.10 Myalgia, unspecified site; Z3A.12 12 weeks gestation of pregnancy; Z79.899 Other long term (current) drug therapy

== ENCOUNTER 2020-12-31 05:14 | Emergency (ER) | payer OTHER ==
[~2020-12-31] VITALS: Ht 162.6 cm; Wt 86.4 kg
[2020-12-31] MEDS ORDERED: ACETAMINOPHEN 500 MG TAB PO ONE (06:30)
[2020-12-31 06:31] LABS: BASO # 0.1 10^3/uL (0.0-0.2); BASO % 0.7 % (0.0-1.0); EOS # 0.1 10^3/uL (0.0-0.5); EOS % 0.6 % (0.0-3.0); HEMATOCRIT 34.5 % (36.0-47.0); HEMOGLOBIN 11.5 g/dl (12.0-15.5); LYMPH # 2.1 10^3/uL (1.5-5.0); LYMPH % 22.2 % (24.0-44.0); MEAN CORPUSCULAR HGB CONC 33.3 g/dl (32.0-36.5); MEAN CORPUSCULAR VOLUME 90.1 fl (80.0-96.0); MONO # 0.9 10^3/uL (0.0-0.8); MONO % 9.5 % (2.0-8.0); NEUTROPHILS # 6.4 10^3/uL (1.5-8.5); NEUTROPHILS % 66.7 % (36.0-66.0); PLATELET COUNT, AUTOMATED 162 10^3/uL (150-450); RED BLOOD COUNT 3.83 10^6/uL (4.00-5.40); WHITE BLOOD COUNT 9.6 10^3/uL (4.0-10.0)
[2020-12-31 06:34] LABS: BLOOD UREA NITROGEN 6 MG/DL (7-18); CALCIUM LEVEL 8.8 MG/DL (8.5-10.1); CARBON DIOXIDE LEVEL 24 MEQ/L (21-32); CHLORIDE LEVEL 107 MEQ/L (98-107); CREATININE FOR GFR 0.67 MG/DL (0.55-1.30); GLOMERULAR FILTRATION RATE > 60.0 (>60); GLUCOSE, FASTING 119 MG/DL (70-100); POTASSIUM SERUM 3.7 MEQ/L (3.5-5.1); SODIUM LEVEL 137 MEQ/L (136-145)
[2020-12-31 07:28] LABS: ALBUMIN 3.1 GM/DL (3.2-5.2); ALT/SGPT 20 U/L (12-78); BILIRUBIN,DIRECT < 0.1 MG/DL (0.0-0.2); BILIRUBIN,TOTAL 0.2 MG/DL (0.2-1.0); CPK CREATINE PHOSPHOKINASE 81 U/L (26-192); MAGNESIUM LEVEL 1.9 MG/DL (1.8-2.4); TOTAL PROTEIN 7.3 GM/DL (6.4-8.2)
[2020-12-31 09:11] LABS: ERYTHROCYTE SEDIMENTATION RATE 40 mm/hr (0-20)
[2020-12-31 09:54] LABS: C REACTIVE PROTEIN QUANTITATIV 0.46 MG/DL (0.00-0.30); RHEUMATOID FACTOR QUANT < 10.0 IU/ML (<15.0)
[2020-12-31] MEDS ORDERED: ACETAMINOPHEN 325 MG TAB PO ONE (12:00)
--- NOTE | 2020-12-31 15:50 | REP ---
INDICATION: back pain with LLE parasethesia/weakness. COMPARISON: None. TECHNIQUE: Sagittal T1, T2, STIR, axial T1 and T2 weighted images obtained. FINDINGS: There is only minimal degenerative disc disease. Vertebral heights and disc heights are overall preserved. No malalignments. On the sagittal T2 weighted images, no significant canal stenosis. Conus ends normally at L1 level. On the review of axial images, At L1-2 through L3-4 no significant canal or foraminal narrowing. At L4-5 mild disc bulging with no significant canal narrowing and mild bilateral foraminal narrowing. At L5-S1 mild canal narrowing and mild bilateral foraminal narrowing. IMPRESSION: Essentially normal examination. Only minimal degenerative disc disease. No evidence of canal stenosis. No convincing evidence of foraminal stenosis. No disc herniation. <Electronically signed by Henry Mcgovern > 12/31/20 154
--- NOTE | 2020-12-31 21:24 | REPVR ---
PROCEDURE INFORMATION: Exam: MR Cervical Spine Without Contrast Exam date and time: 12/31/2020 9:05 PM Age: 35 years old Clinical indication: Neck pain; Additional info: Back pain with lle parasethesia/weakness TECHNIQUE: Imaging protocol: Multiplanar magnetic resonance images of the cervical spine without contrast. COMPARISON: CT Spine,cervical w/o contrast 06/08/2020 10:36 AM FINDINGS: Vertebrae: Unremarkable. Spinal cord: Normal signal. No cord compression. C2-C3: No significant disc disease. No significant spinal stenosis. C3-C4: No significant disc disease. No significant spinal stenosis. C4-C5: No significant disc disease. No significant spinal stenosis. C5-C6: No significant disc disease. No significant spinal stenosis. C6-C7: No significant disc disease. No significant spinal stenosis. C7-T1: No significant disc disease. No significant spinal stenosis. Soft tissues: Unremarkable. Vertebral arteries: Expected flow voids in the vertebral arteries. IMPRESSION: Unremarkable spine. Electronically signed by: Christopher Huerta On 12/31/2020 21:24:46 PM
--- NOTE | 2020-12-31 21:26 | REPVR ---
PROCEDURE INFORMATION: Exam: MR Thoracic Spine Without Contrast Exam date and time: 12/31/2020 9:05 PM Age: 35 years old Clinical indication: Pain in thoracic spine; Other: Back pain with lle parasethesia/weakness TECHNIQUE: Imaging protocol: Multiplanar magnetic resonance images of the thoracic spine without contrast. COMPARISON: No relevant prior studies available. FINDINGS: Vertebrae: Unremarkable. Spinal cord: Normal signal. No cord compression. Discs/Spinal canal/Neural foramina: No significant disc disease. No significant spinal canal stenosis. Soft tissues: Unremarkable. IMPRESSION: Unremarkable spine. Electronically signed by: Christopher Huerta On 12/31/2020 21:26:20 PM
[2020-12-31 22:00] VITALS: BP 113/56
== END 2020-12-31 22:03 | disposition home or self-care (01) ==
LOC: M ED 07:37
DX: O26.891 Other specified pregnancy related conditions, first trimester (principal); Z3A.13 13 weeks gestation of pregnancy; O09.511 Supervision of elderly primigravida, first trimester

== ENCOUNTER → 2021-02-03 | Outpatient (CLI) | payer OTHER ==
--- NOTE | 2021-02-09 00:29 | ECWPNPC ---
PATIENT NAME: DONATO BURDEN : 1985 GENDER: FEMALE VISIT DATE: 02/03/2021 DISCHARGE DATE: 02/03/21 1439 VISIT LOCKED DATE TIME: PHYSICIAN: ROSALIA LEPE MD RESOURCE: ROSALIA LEPE MD REASON FOR APPOINTMENT 1. LUMBAR PAIN HISTORY OF PRESENT ILLNESS GENERAL: 36-YEAR-OLD FEMALE PATIENT WITH A HISTORY OF CHRONIC LOW BACK AND LEG PAIN. THE PATIENT DESCRIBES THE PAIN ACHING, BURNING AND SHARP WITH A PAIN SCORE RANGING FROM 7-10/10 IN BACK WITH RADIATION TO MAINLY THE LEFT LEG. SHE IS 19 WEEKS AND 3 DAYS . SHE CANNOT FUNCTION. SHE IS FOLLOWED BY DR. MALDONADO. I HAVE DISCUSSED WITH HIM THE CASE AND HE HAS EXPLAINED TO ME THAT HE DOES NOT SEE ANY RISK TO THE MOTHER OR THE BABY TO PERFORM ANY INJECTIONS INCLUDING A LUMBAR EPIDURAL. SHE HAS TRIED PHYSICAL THERAPY AND MEDICATION BUT THE PAIN PERSISTS. THE PATIENT WAS HAVING PAIN ONLY IN THE LEFT LEG BUT NOW SHE HAS IT IN THE RIGHT LEG. IT HAS NOW EXPANDED TO THE HIP AND SHE FEELS THAT IT IS GETTING WORSE. FALL RISK SCREENING: SCREENING : MANY FALLS REPORTED IN THE LAST YEAR WITHOUT INJURY. PAIN SCREENING: PATIENT HAS A COMPLAINT OF ACUTE OR CHRONIC PAIN :YES LOCATION OF PAIN: WHOLE BODY INTENSITY OF PAIN (SCALE OF 1 TO 10):8 WHAT DOES YOUR PAIN FEEL LIKE:ACHING, BURNING, SHARP, STABBING DURATION:CONTINOUS PAIN IS INCREASED BY:ACTIVITIES PAIN IS DECREASED BY: HOT WATER, MEDITATION NURSING NOTE: -. PAIN CENTER INTAKE QUESTIONS: DO YOU HAVE A HISTORY OF MRSA? :NO DO YOU TAKE A BLOOD THINNERS? :NO DO YOU HAVE ANY BLEEDING DISORDERS? :NO ANY NEW NUMBNESS OR WEAKNESS IN YOUR LEGS OR ARMS? :YES NUMBNESS AND WEAKNESS TO BILAT LEGS ANY PACEMAKER,DEFIBRILLATOR, OR DORSAL COLUMN STIMULATOR? :NO DO YOU HAVE ANY RASHES OR OPEN SORES? :NO ARE YOU ALLERGIC TO IV DYE? :NO ARE YOU DIABETIC? :NO ANY NEW PROBLEMS WITH YOUR MEDICATIONS? :NO HAVE YOU RECEIVED A VACCINE IN THE PAST 30 DAYS? :NO DO YOU PLAN TO RECEIVE A VACCINE IN THE NEXT 21 DAYS? :NO DO YOU NEED ANY PRESCRIPTION? :NO DO YOU TAKE ANY IMMUNOSUPPRESSIVE MEDICATIONS? :NO DO YOU HAVE ANY KIDNEY OR LIVER DISEASE? :NO IS THERE A CHANCE YOU COULD BE ? :YES 19 WEEKS GESTATION ARE YOU BREAST FEEDING? :NO CURRENT MEDICATIONS TAKING FLEXERIL 5MG ORAL NEEDED TAKING VITAMIN D (ERGOCALCIFEROL) 50 MCG (1999 UT) CAPSULE 1 CAPSULE ORALLY ONCE A DAY TAKING 1 TAKING ZOFRAN 4 MG TABLET 1 TABLET ORALLY ONCE A DAY TAKING UNASYN 1.5GM TAKING CYCLOBENZAPRINE HCL 10 MG TABLET 1 TABLET AT BEDTIME NEEDED ORALLY ONCE A DAY MEDICATION LIST REVIEWED AND RECONCILED WITH THE PATIENT PAST MEDICAL HISTORY BACK INJURY INTRACTABLE PAIN HISTORY OF LATENT TUBERCULOSIS AMA ALLERGIES N.K.D.A. SOCIAL HISTORY GENERAL: TOBACCO USE ARE YOU A:NONSMOKER LATEX QUESTIONNAIRE LATEX ALLERGY : HAVE YOU EVER DEVELOPED ANY TYPE OF REACTION AFTER HANDLING LATEX PRODUCTS SUCH RUBBER GLOVES, CONDOMS, DIAPHRAGMS, BALLOONS, SOCKS, OR UNDERWEAR?NO LATEX ALLERGY : HAVE YOU EVER DEVELOPED ANY TYPE OF REACTION DURING OR AFTER DENTAL APPOINTMENT, VAGINAL/RECTAL EXAMINATION, SURGICAL PROCEDURE, OR ANY OTHER EXPOSURE?NO DATE ASKED : 12/13/2020 LATEX RISK : HAVE YOU EVER HAD ANY DIFFICULTY BREATHING OR HIVES AFTER EATING OR HANDLING ANY FRUITS, OR VEGETABLES; SUCH KIWI, BANANAS, STONE FRUITS, OR CHESTNUTSNO LATEX RISK : DO YOU HAVE A PREVIOUS PERSONAL HISTORY OF MORE THAN NINE SURGERIES, SPINA BIFIDA, OR REPEATED CATHERIZATIONS? NO LATEX RISK : ARE YOU FREQUENTLY EXPOSED TO LATEX PRODUCTS IN YOUR OCCUPATION?NO ALCOHOL USE: SUJATA OLIVAREZ 12/13/2020 5:32:25 PM > , NO. RECREATIONAL DRUG USE DRUG USE?NO LEARNING BARRIERS / SPECIAL NEEDS BARRIERS TO LEARNING?NO HEARING IMPAIRED?NO VISION IMPAIRED?NO COGNITIVELY IMPAIRED?NO READINESS TO LEARN?YES LEARNING PREFERENCES?NO LEARNING CAPABILITIES PRESENT?YES EMOTIONAL BARRIERS?NO SPECIAL DEVICES?NO LIVE GAMES DEALER NEEDED?NO PRIMARY LANGUAGE IS NOT ROMANSH, BUT PATIENT IS FLUENT IN ROMANSH BOTH WRITTEN AND SPOKEN. 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 EXERCISE: RUNNING, WALKS, DAILY. REVIEW OF SYSTEMS CONSTITUTIONAL: ANY RECENT FEVER NO . CHILLS NO . WEIGHT CHANGE OF UNKNOWN REASONS NO . GASTROENTEROLOGY: NEW UNEXPLAINABLE CHANGES IN BOWEL CONTROL NO . CONSTIPATION NO . GENITOURINARY: ANY NEW CHANGE IN BLADDER CONTROL? NO . NEUROLOGY: NEW ONSET DIZZINESS OR NEUROLOGICAL CHANGES NOT MENTIONED NO . NEW NUMBNESS OR PAIN PATTERNS NOT MENTIONED AND PERTINENT TO TODAY'S VISIT NO . CARDIOLOGY: NEW CHEST PRESSURE NO . PATIENT DENIES NO . RESPIRATORY: UNEXPLAINABLE COUGH NO . NEW SHORTNESS OF BREATH NO . VITAL SIGNS WT 195.2 LBS, HT 64 IN, BMI 33.50 INDEX, BP 112/64 MM HG, HR 94 /MIN, RR 18 /MIN, TEMP 98.0 F, OXYGEN SAT % 100%, NA INITIALS AW 1306, REVIEWED BY: EM. EXAMINATION GENERAL: THE PATIENT IS ALERT, ORIENTED TIMES THREE AND COOPERATIVE. LUNGS ARE CLEAR TO AUSCULTATION. HEART SHOWS REGULAR RHYTHM, NO MURMURS AND NO GALLOPS. HER WALK IS ANTALGIC. SHE IS USING A WALKER TO WALK. SHE IS LIMPING FROM THE LEFT LEG WHICH IS WEAKER THAN THE RIGHT LEG ON FLEXION AND EXTENSION. STRAIGHT LEG RAISE IS POSITIVE FOR RADICULOPATHY ON THE LEFT AT 50 DEGREES. THERE IS PRESENCE OF TRIGGER POINTS IN THE RIGHT AND LEFT LOWER BACK AREA WITH BANDS OF TISSUE AND RESTRICTION OF MOVEMENT. MRI OF THE LUMBOSACRAL SPINE DATED 10/14/2020 SHOWS BULGING DISC AT L5-S1 AND L4-L5. ASSESSMENTS LOW BACK PAIN - M54.5 (PRIMARY) MYALGIA - M79.10 MYOFASCIAL PAIN SYNDROME - M79.18 RADICULOPATHY DUE TO LUMBAR INTERVERTEBRAL DISC DISORDER - M51.16 LUMBAR RADICULOPATHY - M54.16 TREATMENT LOW BACK PAIN CLINICAL NOTES: I DISCUSSED ALTERNATIVES WITH MS. ESPINOZA. I WILL ADVISE TO DO PHYSICAL THERAPY AND CONSERVATIVE TREATMENT BUT THE PATIENT EXPRESSED SHE CANNOT FUNCTION. SHE JUST CANNOT TOLERATE THE PAIN AND THE PATIENT WOULD LIKE TO DO SOMETHING TO HELP HER. SO AT THE END, WE DECIDED TO DO SOME TRIGGER POINTS. WE WILL REQUEST AUTHORIZATION FOR THE RIGHT AND LEFT LOWER BACK AREA. MY ADVISE WOULD BE TO DO THEM WITHOUT STEROIDS THE FIRST TIME AND IF THAT DOES NOT WORK THEN TRY WITH STEROIDS AND DEPENDING ON THE RESULT, I WILL CONSIDER DOING A LUMBAR EPIDURAL. I WILL SEE HER HOPEFULLY NEXT WEEK TO DO THE TRIGGER POINT. I EXPLAINED TO THE PATIENT THAT I USUALLY DO NOT PERFORM INJECTIONS ON PATIENTS. MY CONCERN IS THE BABY BUT THE PATIENT EXPRESSED THAT SHE NEEDS HELP. I HAVE DISCUSSED THIS WITH DR. MALDONADO AND HE HAS EXPRESSED THAT WE CAN DO ANY TYPE OF TRIGGER POINTS WITHOUT ANY TYPE OF MONITORING OVER THE BABY. IF WE SHOULD DO AN EPIDURAL OR RADIOFREQUENCY OR FACET BLOCKS, THEN WE WILL HAVE TO DO SOME MONITORING OF THE BABY PRE AND POST PROCEDURE. DR. MALDONADO ALSO HAS EXPLAINED TO ME THAT USING STEROIDS DURING THE PROCEDURES AND [id number] DOES NOT REPRESENTS RISK FOR THE FETUS. THE PATIENT REPORTS UNDERSTANDING AND AGREES. I, ALLISON POLK, DOCUMENTED THE ABOVE INFORMATION ACTING A SCRIBE FOR DR. LEPE. I HAVE REVIEWED THE ABOVE DOCUMENT, WRITTEN BY ALLISON POLK, DIESEL POWERPLANT SUPERVISOR, AND I VERIFY THAT IT IS ACCURATE. . OTHERS NOTES: TRIGGER POINT INJECTION MATERIAL WAS PRINTED. PROCEDURE CODES FA211 ESTABILISHED PATIENT [facility] CHARGE [id number] OFFICE/OUTPATIENT VISIT EST DISPOSITION & COMMUNICATION FOLLOW UP PLEASE BOOK PROCEDURE NEXT WEEK!! (REASON: SHOULD HAVE AUTH FOR TRIGGER POINT INJECTIONS BILATERAL LOW BACK) ELECTRONICALLY SIGNED BY ROSALIA LEPE MD, MD ON 02/08/2021 AT 05:40 PM EDT DISCLAIMER : THIS IS A VISIT SUMMARY EXTRACTED FROM THE [employer] CHART. IT IS NOT A COPY OF THE [employer] PROGRESS NOTE. MARIA ALEJANDRA
== END ==
LOC: M PAIN 12:45
PROVIDERS: ATTEND Anesthesiology
DX: M54.5 Low back pain (principal); M79.18 Myalgia, other site; M51.16 Intervertebral disc disorders with radiculopathy, lumbar region; Z79.899 Other long term (current) drug therapy

== ENCOUNTER → 2021-02-04 | Outpatient (CLI) | payer OTHER | LOC: M LABSMTC 13:23 | PROVIDERS: ATTEND Anesthesiology | DX: Z01.812 Encounter for preprocedural laboratory examination (principal); Z11.52 Encounter for screening for COVID-19 ==

== ENCOUNTER → 2021-02-08 | Outpatient (CLI) | payer OTHER ==
[~2021-02-08] MED LIST changes: +BUPIVACAINE HCL 0.25% 10ML VIAL As Ordered ONE; +BUPIVACAINE HCL 0.25% 30ML VIAL As Ordered ONE
--- NOTE | 2021-02-10 23:47 | ECWPNPC ---
PATIENT NAME: DONATO BURDEN : 1985 GENDER: FEMALE VISIT DATE: 02/08/2021 DISCHARGE DATE: 02/08/21 1116 VISIT LOCKED DATE TIME: PHYSICIAN: ROSALIA LEPE MD RESOURCE: ROSALIA LEPE MD REASON FOR APPOINTMENT 1. TRIGGER POINT INJECTIONS BILATERAL LOW BACK HISTORY OF PRESENT ILLNESS GENERAL: -. FALL RISK SCREENING: SCREENING :YES SEVERAL FALLS WITHOUT INJURY R/T LEFT LEG GIVING OUT.. PAIN SCREENING: PATIENT HAS A COMPLAINT OF ACUTE OR CHRONIC PAIN :YES LOCATION OF PAIN:LOW BACK INTENSITY OF PAIN (SCALE OF 1 TO 10):8 INCREASES TO 10 WITH ACTIVITY WHAT DOES YOUR PAIN FEEL LIKE:ACHING, BURNING, CONTINOUS, SHARP, TENDER, SORE, SHOOTING DURATION:CONTINOUS PAIN IS INCREASED BY:ACTIVITIES, PROLONGED STANDING PAIN IS DECREASED BY:USE OF PAIN MEDICATIONS NURSING NOTE: -. PAIN CENTER INTAKE QUESTIONS: DO YOU HAVE A HISTORY OF MRSA? :NO DO YOU TAKE A BLOOD THINNERS? :NO DO YOU HAVE ANY BLEEDING DISORDERS? :NO ANY NEW NUMBNESS OR WEAKNESS IN YOUR LEGS OR ARMS? :NO ANY PACEMAKER,DEFIBRILLATOR, OR DORSAL COLUMN STIMULATOR? :NO DO YOU HAVE ANY RASHES OR OPEN SORES? :NO ARE YOU ALLERGIC TO IV DYE? :NO ARE YOU DIABETIC? :NO ANY NEW PROBLEMS WITH YOUR MEDICATIONS? :NO HAVE YOU RECEIVED A VACCINE IN THE PAST 30 DAYS? :NO DO YOU PLAN TO RECEIVE A VACCINE IN THE NEXT 21 DAYS? :NO DO YOU TAKE ANY IMMUNOSUPPRESSIVE MEDICATIONS? :NO ANY HISTORY OF SEIZURES? :NO ANY HISTORY OF CARDIAC ISSUES OR EVENTS? :NO DO YOU HAVE ANY KIDNEY OR LIVER DISEASE? :NO DO YOU HAVE SLEEP APNEA? :NO ANY RECENT HEAD INJURY? :NO DO YOU HAVE ANY NEW INFECTIONS? :NO IS THERE A CHANCE YOU COULD BE ? :YES 20 WEEKS ARE YOU BREAST FEEDING? :NO WHEN DID YOU LAST EAT? : -02/07 WHEN DID YOU LAST DRINK? : -02/08 WHAT DID YOU LAST DRINK? : -WATER NAME OF PERSON DRIVING YOU HOME? : -ROSAURA DO YOU HAVE ANY OTHER QUESTIONS OR CONCERNS? : - CURRENT MEDICATIONS TAKING VITAMIN D (ERGOCALCIFEROL) 50 MCG (2000 UT) CAPSULE 1 CAPSULE ORALLY ONCE A DAY TAKING 1 DAILY TAKING ZOFRAN 4 MG TABLET 1 TABLET ORALLY ONCE A DAY NEEDED TAKING UNASYN 1.5GM TAKING CYCLOBENZAPRINE HCL 10 MG TABLET 1 TABLET AT BEDTIME NEEDED ORALLY ONCE A DAY NOT-TAKING FLEXERIL 5MG ORAL NEEDED MEDICATION LIST REVIEWED AND RECONCILED WITH THE PATIENT PAST MEDICAL HISTORY BACK INJURY INTRACTABLE PAIN HISTORY OF LATENT TUBERCULOSIS AMA ALLERGIES N.K.D.A. FAMILY HISTORY FATHER: ALIVE MOTHER: ALIVE EXPECTING JUNE 26, 2021 DUE DATE. SOCIAL HISTORY GENERAL: TOBACCO USE ARE YOU A:NONSMOKER LATEX QUESTIONNAIRE LATEX ALLERGY : HAVE YOU EVER DEVELOPED ANY TYPE OF REACTION AFTER HANDLING LATEX PRODUCTS SUCH RUBBER GLOVES, CONDOMS, DIAPHRAGMS, BALLOONS, SOCKS, OR UNDERWEAR?NO LATEX ALLERGY : HAVE YOU EVER DEVELOPED ANY TYPE OF REACTION DURING OR AFTER DENTAL APPOINTMENT, VAGINAL/RECTAL EXAMINATION, SURGICAL PROCEDURE, OR ANY OTHER EXPOSURE?NO LATEX RISK : HAVE YOU EVER HAD ANY DIFFICULTY BREATHING OR HIVES AFTER EATING OR HANDLING ANY FRUITS, OR VEGETABLES; SUCH KIWI, BANANAS, STONE FRUITS, OR CHESTNUTSNO LATEX RISK : DO YOU HAVE A PREVIOUS PERSONAL HISTORY OF MORE THAN NINE SURGERIES, SPINA BIFIDA, OR REPEATED CATHERIZATIONS? NO LATEX RISK : ARE YOU FREQUENTLY EXPOSED TO LATEX PRODUCTS IN YOUR OCCUPATION?NO DATE ASKED : 02/08/2021 ALCOHOL USE: SUJATA OLIVAREZ 12/13/2020 5:32:25 PM > , NO. RECREATIONAL DRUG USE DRUG USE?NO LEARNING BARRIERS / SPECIAL NEEDS BARRIERS TO LEARNING?NO HEARING IMPAIRED?NO VISION IMPAIRED?NO COGNITIVELY IMPAIRED?NO READINESS TO LEARN?YES LEARNING PREFERENCES?NO LEARNING CAPABILITIES PRESENT?YES EMOTIONAL BARRIERS?NO SPECIAL DEVICES?NO E COMMERCE MARKETING MANAGER NEEDED?NO PRIMARY LANGUAGE IS NOT FRENCH, BUT PATIENT IS FLUENT IN FRENCH BOTH WRITTEN AND SPOKEN. 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 EXERCISE: RUNNING, WALKS, DAILY. VITAL SIGNS WT 195.2 LBS, HT 64 IN, BMI 33.50 INDEX, BP 116/55 MM HG, HR 89 /MIN, RR 16 /MIN, TEMP 98.2 F, OXYGEN SAT % 100%, SAFE IN ENV? (Y/N) YES, NA INITIALS SC 08:45, REVIEWED BY: RUSSELL VAZQUEZ. EXAMINATION GENERAL: THE PATIENT IS ALERT, ORIENTED TIMES THREE AND COOPERATIVE. LUNGS ARE CLEAR TO AUSCULTATION. HEART SHOWS REGULAR RHYTHM, NO MURMURS AND NO GALLOPS. ASSESSMENTS MYALGIA - M79.10 (PRIMARY) TREATMENT MYALGIA IV LACTATED RINGER'S WIDE OPENANICETOALLISON SOOD 02/08/2021 9:31:36 AM > GIVE 500 ML BEFORE STARTING THE PROCEDURE YASHIRA UP 02/08/2021 10:23:23 AM > IV # 20 INITIATED RIGHT WRIST FIRST ATTEMPT. PATIENT TOLERATED IV START WELL. LR INFUSING WIDE OPEN PER MD ORDER. YASHIRA UP 02/08/2021 11:16:33 AM > 700CC LR INFUSED. COMPLETION OF PROCEDURAL VISIT WHEN MEETS CRITERIA PROCEDURES PAIN NURSING RECORD PROCEDURE IN ROOM 0845, PHYSICIAN IN ROOM 1040, START 1044, FINISH 1047, PHYSICIAN OUT OF ROOM 1048, ECG NORMAL SINUS, PATIENT SHIELDED N/A, SAFETY STRAP N/A, PREP CHLOROPREP DR. LEPE, DRESSING TEGADERM Rachael UP RN LOC: 1. ALERT, ORIENTED RESP: 1. REGULAR, NO DYSPNEA COLOR: 1. PINK SKIN: 1. WARM, DRY POSITION: 5. SITTING VITALS: YASHIRA UP 02/08/2021 10:10:15 AM > 112/60 HR 82 16 100% R/A , YASHIRA UP 02/08/2021 10:25:01 AM > 108/55 HR 87 16 100% R/A YASHIRA PU 02/08/2021 10:40:05 AM > 106/57 HR 87 16 100% R/A , YASHIRA UP 02/08/2021 10:54:04 AM > 114/56 HR 83 16 99% R/A D/C V/S NOTES PATIENT MOVED TO POST PROCEDURE ROOM ONE. HOSPITALITY SPECIALIST APPLIED PER DR LEPE. IV INITIATED PER MD ORDER. COMPLETION OF PROCEDURE APPOINTMENT: POST PAIN 7, DRESSING SITE DRY AND INTACT, IV DISCONTINUED, SITE CLEAR, CATHETER INTACT, GAIT STEADY WITH WALKER, TEACHING COMPLETED, PATIENT ACKNOWLEDGES UNDERSTANDING YES, PROCEDURE APPOINTMENT COMPLETED AT 1108 PN TRIGGER POINT INJECTION NO STEROIDS PRE PROCEDURE DIAGNOSIS 1. MYALGIA 2. PAIN AT BILATERAL LOW BACK AREA POST PROCEDURE DIAGNOSIS 1. MYALGIA 2. PAIN AT BILATERAL LOW BACK AREA PROCEDURE TRIGGER POINT INJECTION AT BILATERAL LOW BACK AREA SURGEON DR. ROSALIA LEPE CUSTOMER EXPERIENCE LEADER NONE ANESTHESIA LOCAL PRE PROCEDURE NOTE PATIENT WITH HISTORY OF CHRONIC PAIN AT RIGHT AND LEFT LOW BACK AREA. I EVALUATED THE PATIENT AND REVIEWED THE CHART. THERE IS EVIDENCE OF BANDS OF TISSUE WITH RESTRICTION OF MOVEMENT AND PRESENCE OF TRIGGER POINT AT THE RIGHT AND LEFT LOW BACK AREA. I WENT OVER THE RISKS, ALTERNATIVES, AND BENEFITS ASSOCIATED WITH THIS PROCEDURE. THE PATIENT WOULD LIKE TO PROCEED AND GAVE CONSENT TO PERFORM THE PROCEDURE. THE PATIENT DENIES UNEXPLAINABLE WEIGHT LOSS, FEVER, CHILLS, OR NEW CHANGES IN URINARY OR BOWEL CONTROL. THE PATIENT IS COVID-19 NEGATIVE DESCRIPTION OF PROCEDURE THE PATIENT WAS BROUGHT TO THE PROCEDURE ROOM AND PLACED IN THE SITTING POSITION. THE AREA WAS CLEANED WITH ALCOHOL. THE PROCEDURE WAS DONE USING ASEPTIC STERILE TECHNIQUES. A TIMEOUT WAS PERFORMED WHERE THE CONSENTED SITE WAS VERIFIED WITH EVERYONE IN THE ROOM. USING A 25-GAUGE NEEDLE, TRIGGER POINTS WERE INJECTED INTO THE RIGHT AND LEFT LOW BACK AREA WITH A TOTAL OF 40 ML OF BUPIVACAINE 0.25%. AGREED WITH THE PATIENT THE PROCEDURE WAS DONE WITHOUT STEROIDS. THERE WAS NO EVIDENCE OF BLOOD, PARESTHESIA OR CEREBROSPINAL FLUID DURING THE PROCEDURE. THE PATIENT WAS SENT TO THE RECOVERY ROOM. THE PATIENT WAS MOVING THE EXTREMITIES AND DOING WELL. THERE WAS NO COMPLICATION DURING THE PROCEDURE. EBL LESS THAN 5 ML. POST PROCEDURE NOTE THE PROCEDURE DONE WAS DISCUSSED WITH THE PATIENT. THE PATIENT WILL BE SEEN IN A FOLLOW UP IN THE NEXT FEW WEEKS. I AM LOOKING FOR LONG LASTING PAIN RELIEF FOR THE PATIENT WITH THIS INTERVENTION. INSTRUCTIONS WERE GIVEN, QUESTIONS WERE ANSWERED, AND THE PATIENT EXPRESSED UNDERSTANDING AND AGREES WITH THE PLAN. I, ALLISON POLK, DOCUMENTED THE ABOVE INFORMATION ACTING A SCRIBE FOR DR. LEPE. I HAVE REVIEWED THE ABOVE DOCUMENT, WRITTEN BY ALLISON POLK, WEB DEVELOPMENT DIRECTOR, AND I VERIFY THAT IT IS ACCURATE PROCEDURE CODES 41239 INJ TRIGGER POINT 09/18 [facility] DISPOSITION & COMMUNICATION FOLLOW UP F/UP WITH DR. Marrero THIS SUNDAY (REASON: POST TRIGGER POINT INJECTIONS BILATERAL LOW BACK) ELECTRONICALLY SIGNED BY ROSALIA LEPE MD, MD ON 02/10/2021 AT 05:13 PM EDT DISCLAIMER : THIS IS A VISIT SUMMARY EXTRACTED FROM THE [employer] CHART. IT IS NOT A COPY OF THE [employer] PROGRESS NOTE. MARIA ALEJANDRA
== END ==
LOC: M PAIN 08:30
PROVIDERS: ATTEND Anesthesiology
DX: M79.10 Myalgia, unspecified site (principal); Z79.899 Other long term (current) drug therapy

== ENCOUNTER → 2021-02-10 | Outpatient (CLI) | payer OTHER ==
[~2021-02-10] MED LIST changes: -BUPIVACAINE HCL 0.25% 10ML VIAL As Ordered ONE; -BUPIVACAINE HCL 0.25% 30ML VIAL As Ordered ONE
--- NOTE | 2021-02-11 23:39 | ECWPNPC ---
PATIENT NAME: DONATO BURDEN : 1985 GENDER: FEMALE VISIT DATE: 02/10/2021 DISCHARGE DATE: 02/10/21 1107 VISIT LOCKED DATE TIME: PHYSICIAN: ROSALIA LEPE MD RESOURCE: ROSALIA LEPE MD REASON FOR APPOINTMENT 1. F/U PER DR Marrero HISTORY OF PRESENT ILLNESS GENERAL: 36-YEAR-OLD FEMALE PATIENT WITH A HISTORY OF CHRONIC LOW BACK PAIN. THE PATIENT DESCRIBES THE PAIN ACHING AND SEVERE WITH A PAIN SCORE RANGING FROM 7-10/10. WE DID TRIGGER POINT INJECTIONS WITHOUT STEROIDS BUT IT DID NOT HELP HER. SHE IS LOOKING FOR PAIN RELIEF. THE PATIENT IS . FALL RISK SCREENING: SCREENING :YES SEVERAL FALLS WITHOUT INJURY R/T LEFT LEG GIVING OUT.. PAIN SCREENING: PATIENT HAS A COMPLAINT OF ACUTE OR CHRONIC PAIN :YES LOCATION OF PAIN:BOTH SHOULDERS, LOW BACK, OTHER: LEFT LEG INTENSITY OF PAIN (SCALE OF 1 TO 10):8 INCREASES IN INTENSITY WITH MOVEMENT. WHAT DOES YOUR PAIN FEEL LIKE:BURNING, STABBING, SHOOTING, OTHER NUMBNESS IN LEFT LEG DURATION:CONTINOUS PAIN IS INCREASED BY:ACTIVITIES, PROLONGED STANDING PAIN IS DECREASED BY:USE OF PAIN MEDICATIONS PLAN/GOALS/TREATMENT/INTERVENTION/FOLLOW UP:SEE PLAN NURSING NOTE: -. PAIN CENTER INTAKE QUESTIONS: DO YOU HAVE A HISTORY OF MRSA? :NO DO YOU TAKE A BLOOD THINNERS? :NO DO YOU HAVE ANY BLEEDING DISORDERS? :NO ANY NEW NUMBNESS OR WEAKNESS IN YOUR LEGS OR ARMS? :YES NUMBNESS AND WEAKNESS TO BILAT LEGS ANY PACEMAKER,DEFIBRILLATOR, OR DORSAL COLUMN STIMULATOR? :NO DO YOU HAVE ANY RASHES OR OPEN SORES? :NO ARE YOU ALLERGIC TO IV DYE? :NO ARE YOU DIABETIC? :NO ANY NEW PROBLEMS WITH YOUR MEDICATIONS? :NO HAVE YOU RECEIVED A VACCINE IN THE PAST 30 DAYS? :NO DO YOU PLAN TO RECEIVE A VACCINE IN THE NEXT 21 DAYS? :NO DO YOU NEED ANY PRESCRIPTION? :NO DO YOU TAKE ANY IMMUNOSUPPRESSIVE MEDICATIONS? :NO DO YOU HAVE ANY KIDNEY OR LIVER DISEASE? :NO IS THERE A CHANCE YOU COULD BE ? :YES 20W 4D GESTATION ARE YOU BREAST FEEDING? :NO CURRENT MEDICATIONS TAKING VITAMIN D (ERGOCALCIFEROL) 50 MCG (2000 UT) CAPSULE 1 CAPSULE ORALLY ONCE A DAY TAKING 1 DAILY TAKING ZOFRAN 4 MG TABLET 1 TABLET ORALLY ONCE A DAY NEEDED TAKING UNASYN 1.5GM , NOTES: PRN TAKING CYCLOBENZAPRINE HCL 10 MG TABLET 1 TABLET AT BEDTIME NEEDED ORALLY ONCE A DAY NOT-TAKING FLEXERIL 5MG ORAL NEEDED MEDICATION LIST REVIEWED AND RECONCILED WITH THE PATIENT PAST MEDICAL HISTORY BACK INJURY INTRACTABLE PAIN HISTORY OF LATENT TUBERCULOSIS AMA : YES ALLERGIES N.K.D.A. SOCIAL HISTORY GENERAL: TOBACCO USE ARE YOU A:NONSMOKER LATEX QUESTIONNAIRE LATEX ALLERGY : HAVE YOU EVER DEVELOPED ANY TYPE OF REACTION AFTER HANDLING LATEX PRODUCTS SUCH RUBBER GLOVES, CONDOMS, DIAPHRAGMS, BALLOONS, SOCKS, OR UNDERWEAR?NO LATEX ALLERGY : HAVE YOU EVER DEVELOPED ANY TYPE OF REACTION DURING OR AFTER DENTAL APPOINTMENT, VAGINAL/RECTAL EXAMINATION, SURGICAL PROCEDURE, OR ANY OTHER EXPOSURE?NO LATEX RISK : HAVE YOU EVER HAD ANY DIFFICULTY BREATHING OR HIVES AFTER EATING OR HANDLING ANY FRUITS, OR VEGETABLES; SUCH KIWI, BANANAS, STONE FRUITS, OR CHESTNUTSNO LATEX RISK : DO YOU HAVE A PREVIOUS PERSONAL HISTORY OF MORE THAN NINE SURGERIES, SPINA BIFIDA, OR REPEATED CATHERIZATIONS? NO LATEX RISK : ARE YOU FREQUENTLY EXPOSED TO LATEX PRODUCTS IN YOUR OCCUPATION?NO DATE ASKED : 02/10/2021 ALCOHOL USE: SUJATA OLIVAREZ 12/13/2020 5:32:25 PM > , NO. RECREATIONAL DRUG USE DRUG USE?NO FAITH [id number] ZOROASTRIAN NO LUTHERAN BELIEFS THAT WOULD IMPACT HEALTH CARE. LEARNING BARRIERS / SPECIAL NEEDS BARRIERS TO LEARNING?NO HEARING IMPAIRED?NO VISION IMPAIRED?NO COGNITIVELY IMPAIRED?NO READINESS TO LEARN?YES LEARNING PREFERENCES?NO LEARNING CAPABILITIES PRESENT?YES EMOTIONAL BARRIERS?NO SPECIAL DEVICES?YES : WALKER GOVERNMENT SERVICE EXECUTIVE NEEDED?NO PRIMARY LANGUAGE IS NOT AZERI, BUT PATIENT IS FLUENT IN [place]ERI BOTH WRITTEN AND SPOKEN. 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 EXERCISE: RUNNING, WALKS, DAILY. REVIEW OF SYSTEMS CONSTITUTIONAL: ANY RECENT FEVER NO . CHILLS NO . WEIGHT CHANGE OF UNKNOWN REASONS NO . GASTROENTEROLOGY: NEW UNEXPLAINABLE CHANGES IN BOWEL CONTROL NO . CONSTIPATION NO . GENITOURINARY: ANY NEW CHANGE IN BLADDER CONTROL? NO . NEUROLOGY: NEW ONSET DIZZINESS OR NEUROLOGICAL CHANGES NOT MENTIONED NO . NEW NUMBNESS OR PAIN PATTERNS NOT MENTIONED AND PERTINENT TO TODAY'S VISIT NO . CARDIOLOGY: NEW CHEST PRESSURE NO . PATIENT DENIES NO . RESPIRATORY: UNEXPLAINABLE COUGH NO . NEW SHORTNESS OF BREATH NO . VITAL SIGNS WT 195.2 LBS, HT 64 IN, BMI 33.50 INDEX, BP 131/58 MM HG, HR 82 /MIN, RR 16 /MIN, TEMP 98.2 F, OXYGEN SAT % 99%, SAFE IN ENV? (Y/N) YES, NA INITIALS [place] 10:29, REVIEWED BY: Rachael OLIVAREZ ELEVATOR CONSTRUCTOR HELPER. EXAMINATION GENERAL: THE PATIENT IS ALERT, ORIENTED TIMES THREE AND COOPERATIVE. LUNGS ARE CLEAR TO AUSCULTATION. HEART SHOWS REGULAR RHYTHM, NO MURMURS AND NO GALLOPS. THERE IS TENDERNESS IN THE LOWER BACK IN THE PARASPINAL MUSCLE GROUP ESPECIALLY IN THE LEFT. THE PATIENT HAS RESTRICTION OF MOVEMENT WITH PRESENCE OF TRIGGER POINTS AND BANDS OF TISSUE. THE PATIENT USES A CANE TO AMBULATE. ASSESSMENTS OTHER CHRONIC PAIN - G89.29 (PRIMARY) MYALGIA - M79.10 MYOFASCIAL PAIN DYSFUNCTION SYNDROME - M79.18 TREATMENT OTHER CHRONIC PAIN PAIN PROCEDURE LOGDATE OF PROCEDURE02/08/21PROCEDURE:TRIGGER POINT INJECTIONS BILATERAL LOW BACK WITHOUT STEROIDSAMOUNT OF PRE [id number] ALLISON DRAKE 02/10/2021 11:01:19 AM > DID NOT HELP MYALGIA CLINICAL NOTES: I DISCUSSED ALTERNATIVES WITH MS. ESPINOZA. WE AGREE ON DOING NOW A TRIGGER POINT WITH STEROIDS TO SEE IF THIS GIVES HER SOME PAIN RELIEF. WE DISCUSSED THE POSSIBILITY OF DOING AN EPIDURAL BUT THE PATIENT IS INCLINED TO BE MORE CONSERVATIVE SO WE WILL TRY NOW THE TRIGGER POINT WITH STEROIDS, PLANNING TO DO THIS NEXT WEEK. THE PATIENT AGREES. I, ALLISON POLK, DOCUMENTED THE ABOVE INFORMATION ACTING A SCRIBE FOR DR. LEPE. I HAVE REVIEWED THE ABOVE DOCUMENT, WRITTEN BY ALLISON POLK, HEALTH INFORMATION MANAGERS, AND I VERIFY THAT IT IS ACCURATE. OTHERS NOTES: TRIGGER POINT INJECTION MATERIAL WAS PRINTED. PROCEDURE CODES FA211 ESTABILISHED PATIENT [facility] FACILITY CHARGE [id number] OFFICE/OUTPATIENT VISIT EST DISPOSITION & COMMUNICATION FOLLOW UP REQUEST AUTH FOR TRIGGER POINT INJECTION BILATERAL LOW BACK WITH STEROIDS, BOOK NEXT WEEK (REASON: REQUEST AUTH FOR TRIGGER POINT INJECTION BILATERAL LOW BACK WITH STEROIDS, BOOK NEXT WEEK) ELECTRONICALLY SIGNED BY ROSALIA LEPE MD, MD ON 02/11/2021 AT 04:25 PM EDT DISCLAIMER : THIS IS A VISIT SUMMARY EXTRACTED FROM THE [employer] CHART. IT IS NOT A COPY OF THE [facility] PROGRESS NOTE. MTDD
== END ==
LOC: M PAIN 10:30
PROVIDERS: ATTEND Anesthesiology
DX: M79.18 Myalgia, other site (principal); Z79.899 Other long term (current) drug therapy; Z3A.20 20 weeks gestation of pregnancy

== ENCOUNTER → 2021-02-12 | Outpatient (CLI) | payer OTHER | LOC: M LABSMTC 10:51 | PROVIDERS: ATTEND Anesthesiology | DX: Z20.822 Contact with and (suspected) exposure to COVID-19 (principal) ==

== ENCOUNTER → 2021-02-17 | Outpatient (CLI) | payer OTHER ==
[~2021-02-17] MED LIST changes: +BUPIVACAINE HCL 0.25% 10ML VIAL As Ordered ONE; +BUPIVACAINE HCL 0.25% 30ML VIAL As Ordered ONE; +TRIAMCINOLONE ACETONIDE SUSP 40 MG/ML VIAL (J3301) As Ordered ONE
--- NOTE | 2021-02-24 01:10 | ECWPNPC ---
PATIENT NAME: DONATO BURDEN : 1985 GENDER: FEMALE VISIT DATE: 02/17/2021 DISCHARGE DATE: 02/17/21 1350 VISIT LOCKED DATE TIME: PHYSICIAN: ROSALIA LEPE MD RESOURCE: ROSALIA LEPE MD REASON FOR APPOINTMENT 1. TRIGGER POINT INJECTION BILATERAL LOW BACK HISTORY OF PRESENT ILLNESS GENERAL: -. FALL RISK SCREENING: SCREENING : SEVERAL FALLS REPORTED IN THE LAST YEAR. NO INJURY.. PAIN SCREENING: PATIENT HAS A COMPLAINT OF ACUTE OR CHRONIC PAIN :YES LOCATION OF PAIN:BOTH SHOULDERS, UPPER BACK, MID BACK, LOW BACK, LEFT HIP, RIGHT HIP, LEG(S) INTENSITY OF PAIN (SCALE OF 1 TO 10):9 WHAT DOES YOUR PAIN FEEL LIKE:ACHING, BURNING, CONTINOUS, SHARP, STABBING, TENDER, SORE DURATION:CONTINOUS PAIN IS INCREASED BY:ACTIVITIES, PROLONGED STANDING PAIN IS DECREASED BY:USE OF PAIN MEDICATIONS NURSING NOTE: -. PAIN CENTER INTAKE QUESTIONS: DO YOU HAVE A HISTORY OF MRSA? :NO DO YOU TAKE A BLOOD THINNERS? :NO DO YOU HAVE ANY BLEEDING DISORDERS? :NO ANY NEW NUMBNESS OR WEAKNESS IN YOUR LEGS OR ARMS? :NO ANY PACEMAKER,DEFIBRILLATOR, OR DORSAL COLUMN STIMULATOR? :NO DO YOU HAVE ANY RASHES OR OPEN SORES? :NO ARE YOU ALLERGIC TO IV DYE? :NO ARE YOU DIABETIC? :NO ANY NEW PROBLEMS WITH YOUR MEDICATIONS? :NO HAVE YOU RECEIVED A VACCINE IN THE PAST 30 DAYS? :NO DO YOU PLAN TO RECEIVE A VACCINE IN THE NEXT 21 DAYS? :NO DO YOU TAKE ANY IMMUNOSUPPRESSIVE MEDICATIONS? :NO ANY HISTORY OF SEIZURES? :NO ANY HISTORY OF CARDIAC ISSUES OR EVENTS? :NO DO YOU HAVE ANY KIDNEY OR LIVER DISEASE? :NO DO YOU HAVE SLEEP APNEA? :NO ANY RECENT HEAD INJURY? :NO DO YOU HAVE ANY NEW INFECTIONS? :NO IS THERE A CHANCE YOU COULD BE ? :YES 21 WEEKS ARE YOU BREAST FEEDING? :NO WHEN DID YOU LAST EAT? : --02/16/21 @1730 WHEN DID YOU LAST DRINK? : 02/17/21 @ 0600 WHAT DID YOU LAST DRINK? : -WATER NAME OF PERSON DRIVING YOU HOME? : -ROSAURA-COUSIN DO YOU HAVE ANY OTHER QUESTIONS OR CONCERNS? : -DENIES CURRENT MEDICATIONS TAKING VITAMIN D (ERGOCALCIFEROL) 50 MCG (1999) CAPSULE 1 CAPSULE ORALLY ONCE A DAY TAKING 1 ORALLY DAILY TAKING ZOFRAN 4 MG TABLET 1 TABLET ORALLY ONCE A DAY NEEDED TAKING CYCLOBENZAPRINE HCL 10 MG TABLET 1 TABLET AT BEDTIME NEEDED ORALLY ONCE A DAY NOT-TAKING FLEXERIL 5MG ORAL NEEDED NOT-TAKING UNASYN 1.5GM , NOTES: PRN MEDICATION LIST REVIEWED AND RECONCILED WITH THE PATIENT PAST MEDICAL HISTORY BACK INJURY INTRACTABLE PAIN HISTORY OF LATENT TUBERCULOSIS AMA ALLERGIES N.K.D.A. FAMILY HISTORY FATHER: ALIVE MOTHER: ALIVE EXPECTING JUNE 26, 2021 DUE DATE. SOCIAL HISTORY GENERAL: TOBACCO USE ARE YOU A:NONSMOKER LATEX QUESTIONNAIRE LATEX ALLERGY : HAVE YOU EVER DEVELOPED ANY TYPE OF REACTION AFTER HANDLING LATEX PRODUCTS SUCH RUBBER GLOVES, CONDOMS, DIAPHRAGMS, BALLOONS, SOCKS, OR UNDERWEAR?NO LATEX ALLERGY : HAVE YOU EVER DEVELOPED ANY TYPE OF REACTION DURING OR AFTER DENTAL APPOINTMENT, VAGINAL/RECTAL EXAMINATION, SURGICAL PROCEDURE, OR ANY OTHER EXPOSURE?NO LATEX RISK : HAVE YOU EVER HAD ANY DIFFICULTY BREATHING OR HIVES AFTER EATING OR HANDLING ANY FRUITS, OR VEGETABLES; SUCH KIWI, BANANAS, STONE FRUITS, OR CHESTNUTSNO LATEX RISK : DO YOU HAVE A PREVIOUS PERSONAL HISTORY OF MORE THAN NINE SURGERIES, SPINA BIFIDA, OR REPEATED CATHERIZATIONS? NO LATEX RISK : ARE YOU FREQUENTLY EXPOSED TO LATEX PRODUCTS IN YOUR OCCUPATION?NO DATE ASKED : 02/16/2021 ALCOHOL USE: SUJATA OLIVAREZ 12/13/2020 5:32:25 PM > , NO. RECREATIONAL DRUG USE DRUG USE?NO YAZIDISM [id number] JEWISH NO ISLAM BELIEFS THAT WOULD IMPACT HEALTH CARE. LEARNING BARRIERS / SPECIAL NEEDS BARRIERS TO LEARNING?NO HEARING IMPAIRED?NO VISION IMPAIRED?NO COGNITIVELY IMPAIRED?NO READINESS TO LEARN?YES LEARNING PREFERENCES?NO LEARNING CAPABILITIES PRESENT?YES EMOTIONAL BARRIERS?NO SPECIAL DEVICES?YES : WALKER PHARMACY COORDINATOR NEEDED?NO PRIMARY LANGUAGE IS NOT [place], BUT PATIENT IS FLUENT IN [place] BOTH WRITTEN AND SPOKEN. 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 EXERCISE: RUNNING, WALKS, DAILY. VITAL SIGNS WT 192.8 LBS, HT 64 IN, BMI 33.09 INDEX, BP 111/54 MM HG, HR 88 /MIN, RR 16 /MIN, TEMP 97.8 F, OXYGEN SAT % 99%, SAFE IN ENV? (Y/N) Y, NA INITIALS SC 08:54, REVIEWED BY: HELLEN. EXAMINATION GENERAL: THE PATIENT IS ALERT, ORIENTED TIMES THREE AND COOPERATIVE. LUNGS ARE CLEAR TO AUSCULTATION. HEART SHOWS REGULAR RHYTHM, NO MURMURS AND NO GALLOPS. ASSESSMENTS MYALGIA - M79.10 (PRIMARY) TREATMENT MYALGIA COMPLETION OF PROCEDURAL VISIT WHEN MEETS CRITERIA OTHERS NOTES: PAT COMPLETED 02/16/21 M ANNEL VAZQUEZ . PROCEDURES PAIN NURSING RECORD PROCEDURE IN ROOM 0830, PHYSICIAN IN ROOM 1017, START 1020, FINISH 1024, PHYSICIAN OUT OF ROOM 1025, ECG N/A, PATIENT SHIELDED N/A, SAFETY STRAP N/A, PREP ALCOHOL DR. LEPE, DRESSING TEGADERM Damaris ALMANZA RN LOC: 1. ALERT, ORIENTED [facility] 02/17/2021 9:06:49 AM RESP: CAM[facility] 02/17/2021 9:07:28 AM > 1. REGULAR, NO DYSPNEA COLOR: 1. PINK [facility] 02/17/2021 9:07:32 AM > SKIN: 1. WARM, DRY [facility] 02/17/2021 9:07:36 AM > POSITION: 5. SITTING [facility] 02/17/2021 9:07:40 AM > VITALS: EXIT VITALS HR 82, 117/53, 98% PAIN 8/10. [facility] 02/17/2021 11:03:09 AM > NOTES Damaris ALMANZA RN COMPLETION OF PROCEDURE APPOINTMENT: POST PAIN 8, DRESSING SITE DRY AND INTACT, IV N/A, GAIT OTHER WALKER, TEACHING COMPLETED, PATIENT ACKNOWLEDGES UNDERSTANDING YES, PROCEDURE APPOINTMENT COMPLETED AT 1105 BY: Damaris ALMANZA RN : CRITERIA MET PN TRIGGER POINT INJECTION WITH STEROIDS PRE PROCEDURE DIAGNOSIS 1. MYALGIA 2. PAIN AT BILATERAL LOW BACK AREA POST PROCEDURE DIAGNOSIS 1. MYALGIA 2. PAIN AT BILATERAL LOW BACK AREA PROCEDURE TRIGGER POINT INJECTION AT BILATERAL LOW BACK AREA SURGEON DR. ROSALIA LEPE RESEARCH & INSIGHTS EXECUTIVE NONE ANESTHESIA LOCAL PRE PROCEDURE NOTE THE PATIENT HAS A HISTORY OF CHRONIC PAIN AT THE RIGHT AND LEFT LOW BACK AREA. I EVALUATED THE PATIENT AND REVIEWED THE CHART. THERE IS EVIDENCE OF BANDS OF TISSUE WITH RESTRICTION OF MOVEMENT AND PRESENCE OF TRIGGER POINT AT THE RIGHT AND LEFT LOW BACK AREA. I WENT OVER THE RISKS, ALTERNATIVES, AND BENEFITS ASSOCIATED WITH THIS PROCEDURE. THE PATIENT WOULD LIKE TO PROCEED AND GIVE CONSENT TO PERFORMED THE PROCEDURE. THE PATIENT DENIES UNEXPLAINABLE WEIGHT LOSS, FEVER, CHILLS, OR NEW CHANGES IN URINARY OR BOWEL CONTROL. THE PATIENT IS COVID-19 NEGATIVE DESCRIPTION OF PROCEDURE THE PATIENT WAS BROUGHT TO THE PROCEDURE ROOM AND PLACED IN THE SITTING POSITION. THE AREA WAS CLEANED WITH ALCOHOL. THE PROCEDURE WAS DONE USING ASEPTIC STERILE TECHNIQUE. A TIMEOUT WAS PERFORMED WHERE THE CONSENTED SITE WAS VERIFIED WITH EVERYONE IN THE ROOM. USING A 25-GAUGE NEEDLE, TRIGGER POINTS WERE INJECTED AT THE RIGHT AND LEFT LOW BACK AREA WITH A TOTAL OF 40 ML OF BUPIVACAINE 0.25% AND KENALOG 40 MG. THE MEDICATIONS WERE VERIFIED WITH THE NURSE. THERE WAS NO EVIDENCE OF BLOOD OR PARESTHESIA DURING THE PROCEDURE. THE PATIENT WAS SENT TO THE RECOVERY ROOM. THE PATIENT WAS MOVING THE EXTREMITIES AND DOING WELL. THERE WERE NO COMPLICATIONS DURING THE PROCEDURE. ESTIMATED BLOOD LOSS WAS LESS THAN 5 ML POST PROCEDURE NOTE I AM LOOKING FOR LONG LASTING PAIN RELIEF FOR THE PATIENT WITH THIS INTERVENTION. IF THE PATIENT DOES NOT GET LONG LASTING RELIEF, THE OPTION, DISCUSSED WITH THE PATIENT, IS TO CONSIDER AN EPIDURAL. THIS NEEDS TO BE COORDINATED WITH DR. MALDONADO, HER [employer]KE[employer] ROUTEMAN. HE WILL MONITOR THE BABY BEFORE AND AFTER THE PROCEDURE. THE PATIENT WILL NEED LACTATED RINGER'S, AT LEAST 1000 ML BEFORE GOING INTO THE ROOM. THE PROCEDURE DONE WAS DISCUSSED WITH THE PATIENT. THE PATIENT WILL BE SEEN IN A FOLLOW UP IN THE NEXT FEW WEEKS. INSTRUCTIONS WERE GIVEN, QUESTIONS WERE ANSWERED, AND THE PATIENT EXPRESSED UNDERSTANDING AND AGREES WITH THE PLAN. I, ALLISON POLK, DOCUMENTED THE ABOVE INFORMATION ACTING A SCRIBE FOR DR. LEPE. I HAVE REVIEWED THE ABOVE DOCUMENT, WRITTEN BY ALLISON POLK, HOGSHEAD SALVAGE, AND I VERIFY THAT IT IS ACCURATE PROCEDURE CODES 77696 INJ TRIGGER POINT 09/18 [facility] DISPOSITION & COMMUNICATION FOLLOW UP FOLLOW UP WITH AIRCRAFT DETAIL DRAFTSPERSON (REASON: POST TRIGGER POINT INJECTION BILATERAL LOW BACK) ELECTRONICALLY SIGNED BY ROSALIA LEPE MD, MD ON 02/23/2021 AT 08:56 AM EDT DISCLAIMER : THIS IS A VISIT SUMMARY EXTRACTED FROM THE [employer] CHART. IT IS NOT A COPY OF THE [employer] PROGRESS NOTE. MARIA ALEJANDRA
== END ==
LOC: M PAIN 08:30
PROVIDERS: ATTEND Anesthesiology
DX: M79.10 Myalgia, unspecified site (principal); Z79.899 Other long term (current) drug therapy
CPT/HCPCS: 20552; J3301

== ENCOUNTER → 2021-03-03 | Outpatient (CLI) | payer OTHER ==
[~2021-03-03] MED LIST changes: -BUPIVACAINE HCL 0.25% 10ML VIAL As Ordered ONE; -BUPIVACAINE HCL 0.25% 30ML VIAL As Ordered ONE; -TRIAMCINOLONE ACETONIDE SUSP 40 MG/ML VIAL (J3301) As Ordered ONE
--- NOTE | 2021-03-09 01:48 | ECWPNPC ---
PATIENT NAME: DONATO BURDEN : 1985 GENDER: FEMALE VISIT DATE: 03/03/2021 DISCHARGE DATE: 03/03/21 1030 VISIT LOCKED DATE TIME: PHYSICIAN: SARAH BHARDWAJ RESOURCE: SARAH BHARDWAJ REASON FOR APPOINTMENT 1. POST TRIGGER POINT INJECTION BILATERAL LOW BACK HISTORY OF PRESENT ILLNESS GENERAL: HERE FOR POST PROCEDURE FOLLOW-UP. HAD TRIGGER POINT INJECTIONS WITH STEROIDS TO HER LOWER BACK ON 02/17/2021. REPORTING NO IMPROVEMENT AND SOME AGGRAVATION IN PAIN POST PROCEDURE. SHE IS VERY UNCOMFORTABLE TODAY. WALKS WITH ASSIST OF A WALKER. MOTHER ACCOMPANIES HER IN EXAM ROOM. SHE IS 4 MONTHS . HAS SEEN NEUROLOGY. PATIENT STATES THEY COULD NOT FIND ANY NEUROLOGICAL DEFICITS. SHE WILL BE SEEING RHEUMATOLOGY IN THE NEXT WEEK. CONTINUES TO HAVE FALLING EPISODES DUE TO HER LEGS GIVING OUT. REPORTING DECREASED SENSATION TO LIGHT TOUCH OVER LEFT LEG IN ITS ENTIRETY ON EXAM TODAY. NERVE CONDUCTION STUDIES DONE OF THE LOWER EXTREMITIES ARE REVIEWED AND NOT INDICATIVE OF LUMBOSACRAL RADICULOPATHY. PATIENT HURTS ALL OVER. EXTREMELY TENDER TO TOUCH FROM THE NECK DOWN TO THE LS-SPINE AND PARASPINALS. -. FALL RISK SCREENING: SCREENING : ONE FALL REPORTED IN THE LAST YEAR WITHOUT INJURY. PAIN SCREENING: PATIENT HAS A COMPLAINT OF ACUTE OR CHRONIC PAIN :YES LOCATION OF PAIN: WHOLE BODY INTENSITY OF PAIN (SCALE OF 1 TO 10):9 WHAT DOES YOUR PAIN FEEL LIKE:ACHING, BURNING, SHARP, STABBING DURATION:CONTINOUS, CONSTANT PAIN IS INCREASED BY:ACTIVITIES PAIN IS DECREASED BY: NOTHING NURSING NOTE: -. PAIN CENTER INTAKE QUESTIONS: DO YOU HAVE A HISTORY OF MRSA? :NO DO YOU TAKE A BLOOD THINNERS? :NO DO YOU HAVE ANY BLEEDING DISORDERS? :NO ANY NEW NUMBNESS OR WEAKNESS IN YOUR LEGS OR ARMS? :YES RIGHT LEG NUMBNESS AND WEAKNESS ANY PACEMAKER,DEFIBRILLATOR, OR DORSAL COLUMN STIMULATOR? :NO DO YOU HAVE ANY RASHES OR OPEN SORES? :NO ARE YOU ALLERGIC TO IV DYE? :NO ARE YOU DIABETIC? :NO ANY NEW PROBLEMS WITH YOUR MEDICATIONS? :NO HAVE YOU RECEIVED A VACCINE IN THE PAST 30 DAYS? :NO DO YOU PLAN TO RECEIVE A VACCINE IN THE NEXT 21 DAYS? :NO DO YOU NEED ANY PRESCRIPTION? :YES FLEXARIL DO YOU TAKE ANY IMMUNOSUPPRESSIVE MEDICATIONS? :NO DO YOU HAVE ANY KIDNEY OR LIVER DISEASE? :NO IS THERE A CHANCE YOU COULD BE ? :NO ARE YOU BREAST FEEDING? :NO CURRENT MEDICATIONS TAKING VITAMIN D (ERGOCALCIFEROL) 50 MCG (1999 UT) CAPSULE 1 CAPSULE ORALLY ONCE A DAY TAKING 1 ORALLY DAILY TAKING ZOFRAN 4 MG TABLET 1 TABLET ORALLY ONCE A DAY NEEDED TAKING CYCLOBENZAPRINE HCL 10 MG TABLET 1 TABLET AT BEDTIME NEEDED ORALLY ONCE A DAY TAKING UNISOM SLEEPTABS 25 MG TABLET 1 TABLET AT BEDTIME NEEDED ORALLY ONCE A DAY TAKING LIDODERM 5 % PATCH 1 PATCH REMOVE AFTER 12 HOURS EXTERNALLY ONCE A DAY NOT-TAKING FLEXERIL 5MG ORAL NEEDED NOT-TAKING UNASYN 1.5GM , NOTES: PRN MEDICATION LIST REVIEWED AND RECONCILED WITH THE PATIENT PAST MEDICAL HISTORY BACK INJURY INTRACTABLE PAIN HISTORY OF LATENT TUBERCULOSIS AMA ALLERGIES N.K.D.A. SOCIAL HISTORY GENERAL: TOBACCO USE ARE YOU A:NONSMOKER LATEX QUESTIONNAIRE LATEX ALLERGY : HAVE YOU EVER DEVELOPED ANY TYPE OF REACTION AFTER HANDLING LATEX PRODUCTS SUCH RUBBER GLOVES, CONDOMS, DIAPHRAGMS, BALLOONS, SOCKS, OR UNDERWEAR?NO LATEX ALLERGY : HAVE YOU EVER DEVELOPED ANY TYPE OF REACTION DURING OR AFTER DENTAL APPOINTMENT, VAGINAL/RECTAL EXAMINATION, SURGICAL PROCEDURE, OR ANY OTHER EXPOSURE?NO DATE ASKED : 02/16/2021 LATEX RISK : HAVE YOU EVER HAD ANY DIFFICULTY BREATHING OR HIVES AFTER EATING OR HANDLING ANY FRUITS, OR VEGETABLES; SUCH KIWI, BANANAS, STONE FRUITS, OR CHESTNUTSNO LATEX RISK : DO YOU HAVE A PREVIOUS PERSONAL HISTORY OF MORE THAN NINE SURGERIES, SPINA BIFIDA, OR REPEATED CATHERIZATIONS? NO LATEX RISK : ARE YOU FREQUENTLY EXPOSED TO LATEX PRODUCTS IN YOUR OCCUPATION?NO ALCOHOL USE: SUJATA OLIVAREZ 12/13/2020 5:32:25 PM > , NO. RECREATIONAL DRUG USE DRUG USE?NO CONGREGATIONAL [id number] MU-ISM NO MORMONISM BELIEFS THAT WOULD IMPACT HEALTH CARE. LEARNING BARRIERS / SPECIAL NEEDS BARRIERS TO LEARNING?NO HEARING IMPAIRED?NO VISION IMPAIRED?NO COGNITIVELY IMPAIRED?NO READINESS TO LEARN?YES LEARNING PREFERENCES?NO LEARNING CAPABILITIES PRESENT?YES EMOTIONAL BARRIERS?NO SPECIAL DEVICES?YES : WALKER LETTER CARRIER NEEDED?NO PRIMARY LANGUAGE IS NOT COOK ISLANDER, BUT PATIENT IS FLUENT IN COOK ISLANDER BOTH WRITTEN AND SPOKEN. 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 EXERCISE: RUNNING, WALKS, DAILY. REVIEW OF SYSTEMS CONSTITUTIONAL: ANY RECENT FEVER NO . CHILLS NO . WEIGHT CHANGE OF UNKNOWN REASONS NO . GASTROENTEROLOGY: NEW UNEXPLAINABLE CHANGES IN BOWEL CONTROL NO . CONSTIPATION NO . GENITOURINARY: ANY NEW CHANGE IN BLADDER CONTROL? NO . NEUROLOGY: NEW ONSET DIZZINESS OR NEUROLOGICAL CHANGES NOT MENTIONED NO . NEW NUMBNESS OR PAIN PATTERNS NOT MENTIONED AND PERTINENT TO TODAY'S VISIT NO . CARDIOLOGY: NEW CHEST PRESSURE NO . PATIENT DENIES NO . RESPIRATORY: UNEXPLAINABLE COUGH NO . NEW SHORTNESS OF BREATH NO . VITAL SIGNS WT 192.2 LBS, HT 64 IN, BMI 32.99 INDEX, BP 119/61 MM HG, HR 107 /MIN, RR 18 /MIN, TEMP 97.9 F, OXYGEN SAT % 97%, SAFE IN ENV? (Y/N) Y, NA INITIALS SC 09:43, REVIEWED BY: RADHA. EXAMINATION GENERAL EXAMINATION: GENERAL APPEARS UNCOMFORTABLE,LAYING DOWN ON STRETCHER,MOTHER ACCOMPANIES HER IN EXAM ROOM. PSYCH FLAT AFFECT. NECK:NO LYMPHADENOPATHY, SUPPLE, NO THYROMEGALLY, NO JVD OR BRUITS. LUNGS:CLEAR TO AUSCULTATION BILATERALLY, NO WHEEZES, RHONCHI, RALES. HEART:NO MURMURS, REGULAR RATE AND RHYTHM. MUSCULOSKELETAL:WEAKNESS NOTED OVER LOWER EXTREMITIES . LUMBAR:TENDERNESS NOTED OVER L/S AXIS AND LUMBAR PARASPINALS . THORACIC SPINE:TENDERNESS NOTED OVER THORACIC SPINE AND THORACIC PARASPINALS . LYMPH NODES:NEGATIVE ROMBERG CRANIAL NERVES II THROUGH XII GROSSLY INTACT . ASSESSMENTS OTHER CHRONIC PAIN - G89.29 (PRIMARY) MYOFASCIAL PAIN DYSFUNCTION SYNDROME - M79.18 TREATMENT OTHER CHRONIC PAIN PAIN PROCEDURE LOGDATE OF [id number]/03/2021PROCEDURE:TRIGGER POINT INJECTIONS BILATERAL LOW BACK WITH STEROIDSAMOUNT OF PRE SEDATENONERESULT:NO IMPROVEMENT PROCEDURE CODES FA211 ESTABILISHED PATIENT [facility]ILITY CHARGE DISPOSITION & COMMUNICATION FOLLOW UP HAS F/U APT Jeannie Marrero (REASON: GENERALIZED BACK PAIN/4 MOS ) ELECTRONICALLY SIGNED BY ARNOLDO WRIGHT ON 03/08/2021 AT 01:06 PM EDT DISCLAIMER : THIS IS A VISIT SUMMARY EXTRACTED FROM THE [employer] CHART. IT IS NOT A COPY OF THE [employer] PROGRESS NOTE. MTDD
== END ==
LOC: M PAIN 09:45
PROVIDERS: ATTEND Nurse Practitioner Family
DX: M79.18 Myalgia, other site (principal); Z79.899 Other long term (current) drug therapy

== ENCOUNTER 2021-03-12 22:26 | Outpatient (CLI) | payer OTHER ==
[~2021-03-12] VITALS: Ht 162.6 cm; Wt 87.3 kg
[2021-03-12 22:35] VITALS: BP 118/54
[2021-03-12 23:35] LABS: HEMATOCRIT 34.1 % (36.0-47.0); HEMOGLOBIN 11.6 g/dl (12.0-15.5); MEAN CORPUSCULAR HEMOGLOBIN 30.9 pg (27.0-33.0); MEAN CORPUSCULAR VOLUME 90.9 fl (80.0-96.0); PLATELET COUNT, AUTOMATED 160 10^3/uL (150-450); RED BLOOD COUNT 3.75 10^6/uL (4.00-5.40); WHITE BLOOD COUNT 10.4 10^3/uL (4.0-10.0)
--- NOTE | 2021-03-13 00:41 | IPNPDOC ---
Text Note Date of Service The patient was seen on 03/13/21. NOTE Item Value Date Time White Blood Count 10.4 10^3/uL H 03/12/212313 Red Blood Count 3.75 10^6/uL L 03/12/212313 Hemoglobin 11.6 g/dl L 03/12/212313 Hematocrit 34.1 % L 03/12/212313 Mean Corpuscular Volume 90.9 fl 03/12/212313 Mean Corpuscular Hemoglobin 30.9 pg 03/12/212313 Mean Corpuscular Hemoglobin Concent 34.0 g/dl 03/12/212313 Red Cell Distribution Width 14.1 % 03/12/212313 Platelet Count 160 10^3/uL 03/12/21 2314 03/12/21 came in by ambulance history of 3 falls today and 1 fall yesterday. no Los of fluid no vaginal discharge no contractions . lmp 09/02/2020 edc 06/26/2021 at at 25.2 weeks. MONITORING 1 HOUR NO CONTRACTIONS NORMAL BASELINE MODERATE VARIBILITY . PLANNED US TRANS ABDOMINAL US VERTEX NOTED MOVEMENT WITH HAND IN FRONT OF HEAD CERVICAL LENGTH 2.75 CM NO FUNNELING WITH VALSALVA . VIKRAM 3 QUADRANTS SMALLEST POCKET VERTICAL 3.19 CM TOTAL FLUID 11.80 CM . RISK FACTORS CHRONIC BACK PAIN DEPRESSION DISCHARGED UNDELIVERED WITH PRECAUTIONS VS,Nolbertobone, I+O VS, Fishbone, I+O Laboratory Tests 03/12/21 23:14 Vital Signs Date Time Temp Pulse Resp B/P (MAP) Pulse Ox O2 Delivery O2 Flow Rate FiO2 03/12/21 22:35 99.1 88 20 118/54 (75) Bert De Los Santos MD Mar 13, 2021 00:39
== END 2021-03-13 00:57 | disposition home or self-care (01) ==
LOC: M LDO 22:26
PROVIDERS: ATTEND Obstetrics & Gynecology
DX: O26.893 Other specified pregnancy related conditions, third trimester (principal); Z3A.25 25 weeks gestation of pregnancy; O99.342 Other mental disorders complicating pregnancy, second trimester; F32.9 Major depressive disorder, single episode, unspecified; M54.5 Low back pain; R10.9 Unspecified abdominal pain; R55 Syncope and collapse
CPT/HCPCS: 36415; 85027; 85460; G0378; G0463

== ENCOUNTER 2021-03-13 16:21 | Outpatient (CLI) | payer OTHER ==
[~2021-03-13] VITALS: Ht 162.6 cm; Wt 89.3 kg
[2021-03-13 16:44] VITALS: BP 113/69
[2021-03-13 17:12] LABS: HEMATOCRIT 33.9 % (36.0-47.0); HEMOGLOBIN 11.3 g/dl (12.0-15.5); MEAN CORPUSCULAR HEMOGLOBIN 30.3 pg (27.0-33.0); MEAN CORPUSCULAR HGB CONC 33.3 g/dl (32.0-36.5); MEAN CORPUSCULAR VOLUME 90.9 fl (80.0-96.0); PLATELET COUNT, AUTOMATED 156 10^3/uL (150-450); RED BLOOD COUNT 3.73 10^6/uL (4.00-5.40); WHITE BLOOD COUNT 10.4 10^3/uL (4.0-10.0)
[2021-03-13 18:22] VITALS: BP 125/64
--- NOTE | 2021-03-13 19:13 | HPEPDOC ---
Obstetrical History & Physical General Date of Admission observation status 03/13/21 History of Present Illness Item Value Date Time White Blood Count 10.4 10^3/uL H 03/13/21 1700 Red Blood Count 3.73 10^6/uL L 03/13/21 1700 Hemoglobin 11.3 g/dl L 03/13/21 1700 Hematocrit 33.9 % L 03/13/21 1700 Mean Corpuscular Volume 90.9 fl 03/13/21 1700 Mean Corpuscular Hemoglobin 30.3 pg 03/13/21 1700 Mean Corpuscular Hemoglobin Concent 33.3 g/dl 03/13/21 1700 Red Cell Distribution Width 14.2 % 03/13/21 1700 Platelet Count 156 10^3/uL 03/13/21 1700 Nucleated Red Blood Cells % (auto) 0.0 % 03/13/21 1700 35 yo LMP 09/02/20 EDC BY EARLY US 11/15/20 AT 8 WEEKS 1 DAY EDC 06/26/2021 HISTORY OF MULTIPLE FALLS X DAYS DUE TO CHRONIC BACK INJURY. MOST RECENT FALL 03/12/2021 MONITORED AND US ALL WITHIN NORMAL LIMITS. 03/12/2021 B-K WAS .0325. PATIENT SEEING [facility] FOR PAIN MANAGEMENT CT SCAN AND TRIGGER POINT INJECTIONS . TODAY NO FALLS MOVEMENT AND AGE APPROPRIATE MONITORING. B-K TODAY .0715 Chief Complaint: Other (RISING B-K VALUES ) Information Provided By: Patient Age: 35 : 1 Term: 0 Pre-term: 0 Abortions: 0 Livin Care Care: Good Care Number of Visits: 5 Dating Final EDC: Jun 26, 2021 Final EDC for Daily Update: Jun 26, 2021 LMP: Sep 02, 2020 1st Trimester Date: Nov 15, 2020 Weeks + Days: 8.1 Estimated Date of Confinement: Jun 26, 2021 EGA at Admission: 25.0 Antepartum Course Diagnos(e)s CHRONIC BACK PAIN MULTIPLE FALLS POSSIBLE BLEED Height (inches): 64 Pre- weight (lbs.): 190 Admission Weight (lbs.): 192 Change in Weight (lbs.): 2 Past Medical History Past Obstetrical History : Past 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 History: No pertinent history Past Medical History Medical History CHRONIC BACK INJURY IN LINE OF DUTY [facility] INVOLVED IN CARE PAIN MANAGEMENT NEUROLOGY RHUMATOLOGY Surgical History: Denies/None Family History Significant Family History: No pertinent family hx Family History NON CONTRIBUTORY Social History Social history PATIENT ACTIVE DUTY NON SMOKER NO ETOH NO VAPING NO RECREATIONAL DRUGS Marital Status: Family situation: Spouse/partner home Psychosocial History: Decreased mood * Smoker: non-smoker Alcohol: Denies Drugs: denies Abuse Violence Screening Have you been hit/kicked/slapp: No Have you been sexually assault: No Imunizations Tdap status: current Influenza Status: current Allergies Coded Allergies: No Known Allergies (Unverified , 09/20/20) Medications Scheduled Prenat 115/Iron Fum/Folic/Dss ( 19 Tablet) 1 Each Tablet, 1 TAB PO DAILY Scheduled PRN Cyclobenzaprine HCl (Cyclobenzaprine HCl) 5 Mg Tablet, 1 TAB PO TIDP PRN for muscle spasms Physical Examination Physical Examination GENERAL: Alert and oriented times three. BREAST: . ABDOMEN: Gravid and non-tender to touch. FETUS: Is vertex (VTX) by PALPATION AND US , fetus is vertex (VTX) by Christopher. HEART RATE: Regular rate and rhythm. LUNGS: Clear to auscultation (CTA). EXTREMITIES: No edema. No clonus. Deep tendon reflexes (DTRs) + . Other physical findings USES WLKER AND WHEEL CHAIR DIFFICULT GAIT CHEST CLEAR HEART SOUNDS NORMAL NO MURMUR NO RASHES LESIONS PURITIES ARTHRALGIA POSITIVE MYALGIA POSITIVE NO COUGH WHEEZES NO SOB NO NAUSEA NO VOMITING NO DIRRHEA NO URGENCY NO FREQUENCY Vital Signs/I&O Vital Signs Date Time Temp Pulse Resp B/P (MAP) Pulse Ox O2 Delivery O2 Flow Rate FiO2 03/13/21 18:22 85 18 125/64 (84) 03/13/21 16:44 98.2 Laboratory Data 24H LABS Laboratory Tests 2 03/13/21 17:00: Nucleated Red Blood Cells % (auto) 0.0 CBC/BMP Laboratory Tests 03/13/21 17:00 Pertinent Laboratoy Data Blood Type: B+ RBC Antibody Screen: Negative HIV: Negative Hepatitis B: Negative Rapid Plasma Reagin: Nonreactive Rubella: Immune Varicella: Immune Chlamydia/Gonorrhea: Negative Group B Streptococcus: Negative Cystic Fibrosis: Negative Anatomy Ultrasound Ultrasound Date: February 07, 2021 Placenta Location: Anterior Normal Anatomy: Yes Placenta Previa: No Estimated Weight (grams): 372 Steroid Therapy Steroid Therapy: No Vaginal Examination Dilation: None Presentation: Cephalic presentation Assessment Variability: Moderate Accelerations: Present Decelerations: None Tocometer Contractions: No Assessment/Plan Assessment 35 year-old (G)1 para 0 at 25 weeks by 8.1 -week ultrasound. Presents to Labor and Delivery MULTIPLE FALLS RISING B-K. Plan Admit and orient. Hospital Insurance Clerk and consent. Diet: LALA Group B Streptococcus (GBS) UNKNOWN Labs and intravenous (IV) per unit protocol. Counseled oN PRESENT AND ONGOING MONITORING Lactated Ringers (LR): TKO . Anticipate POSSIBLE TRANSFER HIGHER LEVEL C Labor and Delivery Counseling REVIEWED PLAN OF CARE WITH ELEVATING B-K YESTERDAY 65 CELLS B-K .0325 AND TODAY 165 CELLS B-K .0715 . REPEAT US FOR R/OUT HYDROPS AND CONSULT SANTI , EXPRESSED UNDERSTANDING Bert De Los Santos MD Mar 13, 2021 19:04
--- NOTE | 2021-03-13 19:17 | IPNPDOC ---
Text Note Date of Service The patient was seen on 03/13/21. NOTE RESULTS VS,Nolbertobone, I+O VS, Nolbertobone, I+O Laboratory Tests 03/13/21 17:00 Vital Signs Date Time Temp Pulse Resp B/P (MAP) Pulse Ox O2 Delivery O2 Flow Rate FiO2 03/13/21 18:22 85 18 125/64 (84) 03/13/21 16:44 98.2 Bert De Los Santos MD Mar 13, 2021 19:17
--- NOTE | 2021-03-13 19:39 | REP ---
INDICATION: r/out hydrops weight location of insertion cord COMPARISON: 10/29/2020 TECHNIQUE: Transabdominal obstetrical ultrasound with color Doppler evaluation. FINDINGS: Examination demonstrates a single live intrauterine in cephalic presentation. motion is identified by technologist. Placenta is noted posteriorly and grade 1 without evidence for placenta previa or abruption. Cord insertion noted at the mid placenta. Amniotic fluid volume is subjectively normal. Selected gestational age: 25 weeks 1 day with MARK 06/25/2021. Gestational age by current measurements 25 weeks 1 day with MARK 07/05/2021. FHR equals 160 beats per minute. Estimated weight 785 grams (53rdpercentile). Anatomical assessment demonstrates normal structures including cranium, choroid plexus, cavum, cerebellum/posterior fossa, lungs, diaphragm, stomach, cord insertion/three-vessel cord, kidneys/bladder, spine, and extremities. There is no evidence hydrops fetalis. IMPRESSION: Single live intrauterine in cephalic presentation. Limited anatomical assessment without evidence for abnormality. No evidence for hydrops fetalis. <Electronically signed by Azeem Alexis > 03/13/211934
[2021-03-13 20:04] VITALS: BP 137/74
[2021-03-13 21:39] VITALS: BP 132/72
== END 2021-03-13 21:45 | disposition other institution (70) ==
LOC: M LDO 16:21
PROVIDERS: ATTEND Obstetrics & Gynecology
DX: Z03.72 Encounter for suspected placental problem ruled out (principal); Z3A.25 25 weeks gestation of pregnancy; Z79.899 Other long term (current) drug therapy
CPT/HCPCS: 36415; 76811; 85027; 85460; 86850; 86900; 86901; G0378

== ENCOUNTER 2021-06-08 05:43 | Outpatient (CLI) | payer OTHER ==
[~2021-06-08] VITALS: Ht 162.6 cm; Wt 90.9 kg
[2021-06-08 06:22] VITALS: BP 107/55
[2021-06-08] MEDS ORDERED: ACETAMINOPHEN 650 MG SUPP PR ONE (06:25)
[2021-06-08] MEDS ORDERED: BUPIVACAINE HCL 0.25% 10ML VIAL SC ONE (06:25)
[2021-06-08] MEDS ORDERED: ceFAZolin SOD 2 GM in IV 1 EA IV ONE (06:25)
[2021-06-08] MEDS ORDERED: LR 1,000 ML IV ONE (06:25)
[2021-06-08] MEDS ORDERED: BICITRA 30ML SOLN UDC PO ONE (06:25)
[2021-06-08] MEDS ORDERED: LR 1,000 ML IV SCH (06:25)
[2021-06-08] MEDS ORDERED: ZOFR4TAB16 PO (06:34)
[2021-06-08] MEDS ORDERED: NOXI1TAB PO (06:34)
[2021-06-08] MEDS ORDERED: HOME MED LIST COMPLETE! XX SCH (06:35)
[2021-06-08 06:47] LABS: HEMATOCRIT 34.1 % (36.0-47.0); HEMOGLOBIN 11.2 g/dl (12.0-15.5); MEAN CORPUSCULAR HEMOGLOBIN 28.9 pg (27.0-33.0); MEAN CORPUSCULAR HGB CONC 32.8 g/dl (32.0-36.5); MEAN CORPUSCULAR VOLUME 87.9 fl (80.0-96.0); PLATELET COUNT, AUTOMATED 156 10^3/uL (150-450); RED BLOOD COUNT 3.88 10^6/uL (4.00-5.40); WHITE BLOOD COUNT 7.9 10^3/uL (4.0-10.0)
[2021-06-08] MEDS ORDERED: AZITHROMYCIN INJ 500 MG, VIAL MATE ADAPTER 1 EACH in NS 250 ML IV SCH (07:00)
[2021-06-08 07:29] VITALS: BP 108/64
[2021-06-10] MEDS ORDERED: PRENTAB53 PO (08:42)
[2021-06-10] MEDS ORDERED: MIRA3350 PO (08:42)
--- NOTE | 2021-06-25 17:03 | HPE ---
HISTORY AND PHYSICAL DATE OF ADMISSION: 06/08/2021 HISTORY OF PRESENT ILLNESS: This lady is a 36-year-old 1 who is admitted for primary section because of chronic back injury. She came in with her own wheelchair. However, she claims that nobody told her that she had to be nothing by mouth (NPO) and she had just eaten breakfast. The patient was monitored for an hour, found to have no contractions, category 1 strip. No vaginal bleeding or discharge. She had moderate variability, 15/15, was noted. Patient was then discharged as an outpatient to reschedule her section, to call the office and was re-instructed that she should be NPO after midnight. She verbalized understanding. She was discharged undelivered.
== END 2021-06-08 07:56 | disposition home or self-care (01) ==
LOC: M LDO 05:43 → M LDI 05:43 → UNDOADMIN 05:43 → M LDO 07:56 → UNDODISIN 07:56 → EDSTATUS 06-09 07:49
PROVIDERS: ATTEND Obstetrics & Gynecology
DX: O24.410 Gestational diabetes mellitus in pregnancy, diet controlled (principal); Z99.3 Dependence on wheelchair; Z3A.39 39 weeks gestation of pregnancy; O99.343 Other mental disorders complicating pregnancy, third trimester; F32.9 Major depressive disorder, single episode, unspecified; F41.9 Anxiety disorder, unspecified; O09.523 Supervision of elderly multigravida, third trimester
CPT/HCPCS: 59025; 85027; 86780; 86850; 86900; 86901; 96361; 96374; 96375; G0463

== ENCOUNTER 2021-06-13 05:23 | Inpatient (IN) | payer OTHER ==
--- NOTE | 2021-06-10 14:32 | HPE ---
HISTORY AND PHYSICAL DATE OF ADMISSION: 06/13/2021 She is having a primary section on 06/08/2021 at 0730 tomorrow morning. HISTORY OF PRESENT ILLNESS: This lady is a 36-year-old 1 para 0, LMP September 02, 2020, EDC is June 12, 2021 by early ultrasound at 8 weeks, 1 day on November 15, 2020. Her final due date based on her LMP was 06/26/21. She comes in today with prodromal contractions of moderate intensity. Her risk factors are that she has had a low back injury which has relegated her to a wheelchair and a walker. She has been seen by Pain Management and an Orthopedic consult was initiated but was never acknowledged by Orthopedics. She basically moves from wheelchair to bed and bed to wheelchair. 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 She is also GBS positive and has continued back spasm. PHYSICAL EXAMINATION: On examination today she is at 37 weeks, she is having some mild contractions. Her blood pressure is 117/61, respirations are 18, pulse is 92, her temperature is 99.2. She is 5'4" and weighs 199 pounds. The rest of the examination is unremarkable. She is normocephalic, atraumatic. Neck has full range of motion. Pupils are equal and reactive to light. Distal pulses are symmetric. No evidence of DVT, PE or superficial phlebitis. Chest is clear bilaterally to bases. No wheezes or rhonchi. No CVA tenderness. Abdomen is soft intermittently, four quadrant bowel sounds are noted, vertex presentation. heart rate is 140. No rashes, lesions or pruritus. No arthralgia. No myalgia. She does complain periodically of joint pain and back issues. No CVA tenderness. No issues of urgency or frequency. No nausea, vomiting, diarrhea or constipation. She is a well-controlled gestational diabetic on diet. On pelvic examination: 2 cm, very posterior, thick, -3 station, about 50% effaced, vertex presenting. Our plan of care is for a primary section based on issues of back injury, AMA at age 36, GBS positive. We discussed the risks and benefits of surgery including hemorrhage, infection, perforation, and re-operation, remote possibility of hysterectomy for life-threatening bleeding conditions, remote possibility of blood transfusion, also possibility of NICU admission for the baby. The other issue is that we are unsure of the issue of her back and the potential for paralysis may be there, however Anesthesia consultation in order to effectively decide what is the best method of anesthesia. Patient expressed an understanding of same, a 40 minute discussion, all questions were answered. Patient is to leaf size picker her meds at [place], COVID testing at [place], arrive at the hospital at 0500 hours tomorrow morning, 06/08/2021.
[2021-06-13] VITALS (10 sets, daily range): BP systolic 107–137; BP diastolic 58–77
[~2021-06-13] VITALS: Ht 162.6 cm; Wt 90.4 kg
[~2021-06-13 05:23] MED LIST changes: +MIRA3350 PO; +NOXI1TAB PO; +PRENTAB53 PO; +ZOFR4TAB16 PO
[2021-06-13] MEDS ORDERED: ACETAMINOPHEN 650 MG SUPP PR ONE (05:55)
[2021-06-13] MEDS ORDERED: LR 1,000 ML IV SCH ×2 (05:55→09:25)
[2021-06-13] MEDS ORDERED: BUPIVACAINE HCL 0.25% 10ML VIAL SC ONE ×2 (05:55→07:20)
[2021-06-13] MEDS ORDERED: BICITRA 30ML SOLN UDC PO ONE (05:55)
[2021-06-13] MEDS ORDERED: LR 1,000 ML IV ONE (05:55)
[2021-06-13] MEDS ORDERED: ceFAZolin SOD 1 GM in D5W MINI-BAG PLUS 50 ML IV ONE ×2 (05:55→06:10)
[2021-06-13 06:18] LABS: HEMATOCRIT 34.1 % (36.0-47.0); MEAN CORPUSCULAR HEMOGLOBIN 28.1 pg (27.0-33.0); MEAN CORPUSCULAR HGB CONC 32.3 g/dl (32.0-36.5); MEAN CORPUSCULAR VOLUME 87.2 fl (80.0-96.0); PLATELET COUNT, AUTOMATED 172 10^3/uL (150-450); RED BLOOD COUNT 3.91 10^6/uL (4.00-5.40); WHITE BLOOD COUNT 7.5 10^3/uL (4.0-10.0)
[2021-06-13] MEDS ORDERED: AZITHROMYCIN INJ 500 MG, VIAL MATE ADAPTER 1 EACH in NS 250 ML IV SCH (06:25)
[2021-06-13] MEDS ORDERED: ceFAZolin SOD 2 GM in IV 1 EA IV ONE (06:25)
[2021-06-13] MEDS ORDERED: ONDANSETRON 4MG/2ML VIAL As Ordered ONE (07:12)
[2021-06-13] MEDS ORDERED: MORPHINE PRES-FREE INJ 10 MG/10 ML VIAL (J2274) As Ordered ONE (07:12)
[2021-06-13] MEDS ORDERED: dexameTHASONE 4 MG/ML 1ML VIAL (J1100 PER 1MG) As Ordered ONE (07:13)
[2021-06-13] MEDS ORDERED: OXYTOCIN 30 UNITS IN 0.9% NaCl 500ML IV BAG (J2590) As Ordered ONE ×2 (07:14→09:13)
[2021-06-13] MEDS ORDERED: ACETAMINOPHEN 650 MG SUPP PR SCH (07:25)
[2021-06-13] MEDS ORDERED: NALBUPHINE HCL 10 MG/ML AMP (J2300) IV PRN (07:43)
[2021-06-13] MEDS ORDERED: NALOXONE INJ 0.4MG/1ML VIAL (J2310 PER 1MG) IV PRN ×2 (07:43)
[2021-06-13] MEDS ORDERED: diphenhydrAMINE 50MG/ML VIAL (J1200) IV PRN (07:43)
[2021-06-13] MEDS ORDERED: ONDANSETRON 4MG/2ML VIAL IV PRN ×2 (07:43→09:30)
[2021-06-13] MEDS ORDERED: METOCLOPRAMIDE INJ 10MG/2ML VIAL (J2765 PER 1) IV PRN (07:43)
[2021-06-13] MEDS ORDERED: KETOROLAC 60MG 2ML VIAL As Ordered ONE (07:57)
[2021-06-13] MEDS ORDERED: OXYTOCIN INJ 10 UNITS/ML VIAL (J2590) As Ordered ONE (08:12)
[2021-06-13] MEDS ORDERED: PHENYLephrine 500MCG 5ML (100MCG/ML) SYRINGE As Ordered ONE (08:23)
[2021-06-13 08:26] LABS: CORD GAS ABE A -4.4; CORD GAS HCO3 A 24.5 MEQ/L; CORD GAS O2 SAT A 46.1 %; CORD GAS PCO2 A 61.6 mmHg; CORD GAS PH A 7.217 UNITS; CORD GAS PO2 A 21.7 mmHg; CORD GAS SBC A 19.7 MEQ/L; CORD GAS TCO2 A 26.4 MEQ/L
[2021-06-13 08:27] LABS: CORD GAS ABE V -5.7; CORD GAS HCO3 V 20.9 MEQ/L; CORD GAS O2 SAT V 81.3 %; CORD GAS PCO2 V 44.8 mmHg; CORD GAS PH V 7.286 UNITS; CORD GAS PO2 V 37.9 mmHg; CORD GAS SBC V 19.5 MEQ/L; CORD GAS TCO2 V 22.2 MEQ/L
[2021-06-13] MEDS ORDERED: ANUSOL HC CREAM 30GM TOP PRN (09:25)
[2021-06-13] MEDS ORDERED: SIMETHICONE 80MG CHEW TAB PO PRN (09:25)
[2021-06-13] MEDS ORDERED: RHOGAM 300 MCG (1500 IU) INJ (J2790) IM SCH (09:25)
[2021-06-13] MEDS ORDERED: MEASLES,MUMPS,RUBELLA VACCINE INJ (MMR-II) (90707) SC SCH (09:25)
[2021-06-13] MEDS ORDERED: METHYLERGONOVINE MALEATE 0.2 MG TAB PO PRN (09:25)
[2021-06-13] MEDS ORDERED: OXYTOCIN DRIP 30 UNITS in IV 1 EA IV ONE (09:25)
[2021-06-13] MEDS ORDERED: ACETAMINOPHEN TAB 650MG DOSE (2X325MG) PO PRN (09:25)
[2021-06-13] MEDS ORDERED: ACETAMINOPHEN 500 MG TAB PO PRN (09:25)
[2021-06-13] MEDS ORDERED: DOCUSATE SODIUM 100MG CAPSULE PO PRN (09:25)
[2021-06-13] MEDS ORDERED: oxyCODONE 5MG TAB PO PRN (09:30)
[2021-06-13] MEDS ORDERED: fentaNYL 100 MCG/2 ML INJECTION (J3010) IV PRN (09:30)
[2021-06-13] MEDS: PERCOCET 5MG/325MG TAB PO PRN ×2 (12:41→17:08)
[2021-06-13] MEDS: KETOROLAC 30 MG/ML 1ML VIAL IV SCH ×2 (14:35→21:21)
[2021-06-13] MEDS: CYCLOBENZAPRINE 5MG TABLET PO SCH ×2 (14:36→21:21)
[2021-06-14] MEDS: KETOROLAC 30 MG/ML 1ML VIAL IV SCH (02:15)
[2021-06-14 02:22] VITALS: BP 110/58
[2021-06-14] MEDS: CYCLOBENZAPRINE 5MG TABLET PO SCH ×3 (05:07→21:12)
[2021-06-14 05:51] VITALS: BP 98/55
--- NOTE | 2021-06-14 06:05 | IPNPDOC ---
Progress Note Date of Service: Jun 14, 2021 Day#: 1 Progress Note SUBJECT: Petty Ashford is a 36-year-old 1 now Para 1001 status post uncomplicated primary low transverse delivery at 38+1 weeks' at approximately 0811 hours on [id number] of a male 8 pounds 9 ounces 3870 grams doing well day # 1. She has been ambulating, voiding spontaneously without issue and tolerating regular diet. Breast feeding without issue. Reports lochia is decreaasing. Pain is controlled with medications. She has not yet passed flatus. OBJECTIVE: VITAL SIGNS: Within normal limits, afebrile. Alert and oriented times three. nonlabored breathing Heart rate: Regular rate Abdomen: Fundus firm at U-2. Soft, appropriate postoperative tenderness. +bowel sounds. Incision covered with dressing with no strikethrough. ASSESSMENT: as above doing well on day 1. Vitals within normal limits, afebrile, hemodynamically stable with no evidence of infection. PLAN: - Discharge to home likely tomorrow - continue current pain regimen. - Encourage breast feeding and ambulation. - Return in 2 weeks for incision check and Routine PP visit in 6 weeks in clinic. - routine postoperative/ care VS, I&O, 24H, [facility] Vital Signs/I&O Vital Signs Date Time Temp Pulse Resp B/P (MAP) Pulse Ox O2 Delivery O2 Flow Rate FiO2 06/14/21 05:51 97.7 75 18 98/55 (69) 100 Room Air I&O- Last 24 Hours up to 6 AM 06/14/21 06:00 Intake Total 4975 ml Output Total 3330 ml Balance 1645 ml Laboratory Data 24H LABS Laboratory Tests 2 06/13/21 06:04: Nucleated Red Blood Cells % (auto) 0.0, Syphilis Serology NONREACTIVE 06/13/21 08:12: Cord Arterial Blood pH 7.217, Cord Arterial Blood PCO2 61.6, Cord Arterial Blood PO2 21.7, Cord Arterial Blood HCO3 24.5, Cord Arterial Blood Total CO2 26.4, Cord Arterial Blood Base Excess -4.4, Cord Arterial Base Excess (Standard 19.7, Cord Arterial Bld Oxygen Saturation 46.1, Cord Venous Blood pH 7.286, Cord Venous Blood PCO2 44.8, Cord Venous Blood PO2 37.9, Cord Venous Blood HCO3 20.9, Cord Venous Blood Total CO2 22.2, Cord Venous Base Excess (Actual) -5.7, Cord V enous Base Excess (Standard) 19.5, Cord Venous Blood Oxygen Saturation 81.3 CBC/BMP Laboratory Tests 06/13/21 06:04 CAMI SEE DO Jun 14, 2021 06:05
[2021-06-14 07:02] LABS: HEMATOCRIT 25.8 % (36.0-47.0); MEAN CORPUSCULAR HEMOGLOBIN 27.9 pg (27.0-33.0); MEAN CORPUSCULAR HGB CONC 32.2 g/dl (32.0-36.5); MEAN CORPUSCULAR VOLUME 86.9 fl (80.0-96.0); PLATELET COUNT, AUTOMATED 126 10^3/uL (150-450); RED BLOOD COUNT 2.97 10^6/uL (4.00-5.40); WHITE BLOOD COUNT 9.2 10^3/uL (4.0-10.0)
[2021-06-14 07:35] LABS: HEMOGLOBIN 8.3 g/dl (12.0-15.5)
[2021-06-14] MEDS: PRENATAL VITAMINS CHEWABLE TABLET PO SCH (08:40)
[2021-06-14] MEDS: PERCOCET 5MG/325MG TAB PO PRN ×4 (08:57→21:13)
[2021-06-14] MEDS ORDERED: INFLUENZA QUADRIVALENT PF VACCINE 0.5ML SYRINGE IM ONE (09:00)
[2021-06-14 09:46] VITALS: BP 111/59
[2021-06-14] MEDS ORDERED: IBUPROFEN 600MG TAB PO PRN (11:00)
--- NOTE | 2021-06-14 13:05 | RO ---
OPERATIVE NOTE DATE OF OPERATION: 06/13/2021 PREOPERATIVE DIAGNOSES: 1. Primary section for chronic back injury. 2. AGDM1, diet controlled. 3. Depression. 4. Anxiety. POSTOPERATIVE DIAGNOSES: 1. Primary section for chronic back injury. 2. AGDM1, diet controlled. 3. Depression. 4. Anxiety. 5. Anterior wall fibroid on the left. 6. 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 OPERATION PROPOSED: Primary section. OPERATION PERFORMED: Primary section. SURGEON: Bert De Los Santos MD. FOREIGN POLICY OFFICER: Evangelista Kamara for extraction, retraction, and visualization without which the procedure could not be completed. ANESTHESIA: Spinal plus local anesthetic for intraperitoneal procedures. ESTIMATED BLOOD LOSS: 700 mL. DESCRIPTION OF PROCEDURE: After adequate time out, prepped and draped in the supine position. Lui catheter in the bladder draining clear urine. Sequentials in place. Acetaminophen suppository 1300 mg per rectum. Appropriate antibiotic coverage preoperatively. A Pfannenstiel incision was made two fingerbreadths above the symphysis pubis passing through abdominal layers securing hemostasis. Opening the peritoneal cavity we were greeted with large varicosities on the right side of the uterus right to the bladder edge along the broad ligament and usp up the uterus approaching and encroaching upon the midline. On the left hand side, there was an anterior wall fibroid deep in the pelvis close to the reflection of the bladder. We attempted to avoid both those areas and reflected the bladder down as we could. A Mobius was placed in the abdomen and then a low transverse incision was made into the uterus. An AROM was done draining clear , and we decided to extract the fetus, however, with some difficulty. We used a shoehorn technique using one blade of the Theron-Sullivan to place under the baby's head and allowing that as leverage to lift out the baby. The rest of the delivery was unremarkable. We delivered a live male infant weighing 8 pounds 9 ounces, 3820 grams, Apgars of 9 and 9 at one and five minutes respectively. Arterial pH 7.21, base excess -4.4, venous pH 7.28, base excess -5.7. Placenta was manually removed. Three vessels in the cord. Membranes and tissues intact. The lower segment was evaluated. The intrauterine contents were swept clean. There was a moderate amount of bleeding from the varicosities on the right hand side which did not contract down immediately despite the use of Pitocin. The lower segment was oversewn in the usual fashion in two layers imbricating the second layer. Eventually the varicosities reduced with Pitocin running, and the uterus contracted well down. The patient received 1,000 mg of Cytotec per rectum postoperative procedure in order to maintain uterine contractility. With instrument and pad count correct, both ovaries and tubes appeared to be normal. The abdomen was then closed with a running stitch for the peritoneum, same for the fascia, and interrupted for subcu. Marcaine 0.25% 10 mL to the incision site. Subcuticular stitch and Optifoam dressing was applied. Massage of the uterus contracted well down. Moderate amount of clots were retrieved, but the uterus remained well contracted and two below. The patient was sent to recovery in good condition.
[2021-06-14 14:00] VITALS: BP 120/71
[2021-06-14 17:57] VITALS: BP 119/62
[2021-06-14 21:51] VITALS: BP 132/67
[2021-06-15] MEDS: PERCOCET 5MG/325MG TAB PO PRN ×2 (01:28→05:41)
[2021-06-15 02:39] VITALS: BP 117/67
[2021-06-15] MEDS: CYCLOBENZAPRINE 5MG TABLET PO SCH (05:40)
[2021-06-15 06:33] VITALS: BP 122/72
[2021-06-15] MEDS ORDERED: IBUP-1022 PO (07:10)
[2021-06-15] MEDS ORDERED: DOCU100C16 PO (07:10)
[2021-06-15] MEDS ORDERED: CYCL5TAB PO (07:10)
[2021-06-15] MEDS ORDERED: PERCOCET PO (07:10)
[2021-06-15] MEDS: PRENATAL VITAMINS CHEWABLE TABLET PO SCH (07:45)
--- NOTE | 2021-06-15 08:10 | IPN ---
PROGRESS NOTE DATE: 06/13/2021 This patient requested circumcision of her male . After discussing risks and benefits of circumcision, the medical indications, the penile block and aftercare, expressed understanding of penile block, aftercare and bleeding signed the consent form. All questions were answered; 20 minute discussion. We await the clearance by the case investigator. Adan DUVAL
--- NOTE | 2021-06-15 08:46 | DSES ---
DISCHARGE SUMMARY DATE OF ADMISSION: 06/13/2021 DATE OF DISCHARGE: 06/15/2021 BRIEF HISTORY: This lady is a 36-year-old 1 now para 1 admitted for primary section because of a severe back injury. Risk factors: She had a severe back injury, in a wheelchair, she has a fibroid uterus, varicosities on the right side of the uterus, AGDM1 well-controlled on diet. She had a primary section with livebirth male infant weighing 8 pounds, 9 ounces, 3870 grams, Apgars of 9 and 9 at 1 and 5 minutes respectively. Arterial pH 7.21, base excess -4.4, venous pH 7.28, base excess -5.7. On her second , day we discussed phlebitis, cystitis, mastitis, endometritis, cellulitis, diet, exercise, pain management, perineal, breast and wound care. PHYSICAL EXAMINATION: The rest of the examination is unremarkable. Normocephalic, atraumatic. Neck with full range of motion. Pupils equal and reactive to light. Distal pulses are symmetric. No evidence of DVT, PE or superficial phlebitis. Chest is clear bilaterally to bases. No wheezes or rhonchi. No CVA tenderness. Abdomen is soft, four quadrant bowel sounds are noted. Incision is clean and dry. Uterus is two below. No rashes, lesions or pruritus. No arthralgias or myalgias. No complaint of joint pain. No complaint of cough, wheeze, shortness of breath or dyspnea on exertion. No nausea, vomiting, diarrhea or constipation. No urgency or frequency. Her admitting hemoglobin was 11.0, hematocrit 34.1 and platelets are 172,000. day #1 hemoglobin was 8.3 and hematocrit 25.8 and platelets were 126,000. She is asymptomatic. Her blood pressure on discharge was 122/72, respirations are 18, pulse 77, temperature is 98.3. 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 Patient is breast-feeding. All questions were answered, a 20 minute discussion. Patient is discharged improved. cc: [facility]
== END 2021-06-15 10:52 | disposition home or self-care (01) | DRG 773 ==
LOC: M LDI 05:23 → M OBS 10:20
PROVIDERS: ADMIT Obstetrics & Gynecology; ATTEND Obstetrics & Gynecology
PROC: 10D00Z1 Extraction of Products of Conception, Low, Open Approach (ICD-10-PCS; principal; 2021-06-13 07:30)
DX: O24.420 Gestational diabetes mellitus in childbirth, diet controlled (principal); Z37.0 Single live birth; F32.9 Major depressive disorder, single episode, unspecified; F41.9 Anxiety disorder, unspecified; O99.344 Other mental disorders complicating childbirth; D25.9 Leiomyoma of uterus, unspecified; O34.13 Maternal care for benign tumor of corpus uteri, third trimester; O09.523 Supervision of elderly multigravida, third trimester; Z3A.37 37 weeks gestation of pregnancy; O99.820 Streptococcus B carrier state complicating pregnancy

== ENCOUNTER → 2021-07-14 | Outpatient (REF) | payer OTHER ==
[~2021-07-14] MED LIST changes: +DOCU100C16 PO; +IBUP-1022 PO; +PERCOCET PO
[2021-07-14 17:29] LABS: BASO # 0.1 10^3/uL (0.0-0.2); EOS # 0.1 10^3/uL (0.0-0.5); EOS % 0.8 % (0.0-3.0); HEMATOCRIT 39.3 % (36.0-47.0); HEMOGLOBIN 12.2 g/dl (12.0-15.5); LYMPH # 2.2 10^3/uL (1.5-5.0); LYMPH % 30.2 % (24.0-44.0); MEAN CORPUSCULAR VOLUME 86.9 fl (80.0-96.0); MONO # 0.6 10^3/uL (0.0-0.8); MONO % 8.3 % (2.0-8.0); NEUTROPHILS # 4.3 10^3/uL (1.5-8.5); NEUTROPHILS % 59.4 % (36.0-66.0); PLATELET COUNT, AUTOMATED 156 10^3/uL (150-450); RED BLOOD COUNT 4.52 10^6/uL (4.00-5.40); WHITE BLOOD COUNT 7.2 10^3/uL (4.0-10.0)
[2021-07-14 17:57] LABS: ALBUMIN 3.9 GM/DL (3.2-5.2); ALT/SGPT 42 U/L (12-78); BILIRUBIN,TOTAL 0.3 MG/DL (0.2-1.0); BLOOD UREA NITROGEN 11 MG/DL (7-18); CALCIUM LEVEL 9.2 MG/DL (8.5-10.1); CARBON DIOXIDE LEVEL 29 MEQ/L (21-32); CHLORIDE LEVEL 107 MEQ/L (98-107); CPK CREATINE PHOSPHOKINASE 96 U/L (26-192); CREATININE FOR GFR 0.93 MG/DL (0.55-1.30); GLOMERULAR FILTRATION RATE > 60.0 (>60); GLUCOSE, FASTING 112 MG/DL (70-100); LDH LACTATE DEHYDROGENASE 178 U/L (84-246); POTASSIUM SERUM 4.1 MEQ/L (3.5-5.1); SODIUM LEVEL 139 MEQ/L (136-145); TOTAL PROTEIN 7.7 GM/DL (6.4-8.2)
[2021-07-14 18:54] LABS: ERYTHROCYTE SEDIMENTATION RATE 13 mm/hr (0-20)
== END ==
LOC: M SFHCRHEU 10:54
PROVIDERS: ATTEND Internal Medicine Rheumatology
DX: M35.3 Polymyalgia rheumatica (principal)
CPT/HCPCS: 36415; 80053; 82085; 82550; 83615; 85025; 85652; 86140; G0463

== ENCOUNTER → 2021-08-04 | Outpatient (CLI) | payer OTHER | LOC: M PAIN 13:45 | PROVIDERS: ATTEND Anesthesiology | DX: M51.16 Intervertebral disc disorders with radiculopathy, lumbar region (principal); G89.29 Other chronic pain; Z79.899 Other long term (current) drug therapy ==

== ENCOUNTER → 2021-08-25 | Outpatient (REF) ==
--- NOTE | 2021-08-25 10:32 | REP ---
INDICATION: PAIN/SOB COMPARISON: None. TECHNIQUE: PA and lateral. FINDINGS: The mediastinum and cardiac silhouette are normal. The lung branch are clear and without acute consolidation, effusion, or pneumothorax. The skeletal structures are intact and normal. IMPRESSION: No acute cardiopulmonary process. <Electronically signed by Azeem Alexis > 08/25/21 1022
--- NOTE | 2021-08-25 10:33 | REP ---
INDICATION: PAIN/SOB COMPARISON: None. TECHNIQUE: AP, lateral, coned-down views of the lumbar spine. FINDINGS: Three views of the lumbosacral spine demonstrate satisfactory alignment and lordosis without acute fracture / compression injury or subluxation. No significant degenerative changes noted. IMPRESSION: 1. Normal age-appropriate lumbosacral spine radiographs. <Electronically signed by Azeem Alexis > 08/25/21 1025
--- NOTE | 2021-08-25 10:34 | REP ---
INDICATION: PAIN/SOB COMPARISON: None. TECHNIQUE: AP, lateral, bilateral oblique and sunrise views. FINDINGS: The osseous structures and joint spaces are intact and normal. There is no evidence for acute fracture or dislocation. No joint effusion is appreciated. Surrounding soft tissues are unremarkable. No subcutaneous emphysema or radiodense foreign body. IMPRESSION: Essentially normal age-appropriate left knee examination. <Electronically signed by Azeem Alexis > 08/25/21 [id number]
--- NOTE | 2021-08-25 10:35 | REP ---
INDICATION: PAIN/SOB. COMPARISON: None. TECHNIQUE: AP, Bui, lateral andSMV views. FINDINGS: The sinuses are well aerated and without mucosal thickening or fluid level. No foreign body. The surrounding osseous structures are intact and normal. IMPRESSION: Normal sinus radiograph series. <Electronically signed by Azeem Alexis > 08/25/21 1037
== END ==
LOC: M PLAIMG 09:47
PROVIDERS: ATTEND Internal Medicine
DX: R06.02 Shortness of breath (principal); R52 Pain, unspecified